=== PATIENT | female | born 1990 | race Caucasian/White ===

== ENCOUNTER → 2017-05-18 09:55 | Outpatient (CLI) | payer BC, SELFPAY | PROVIDERS: PCP Internal Medicine; Visit Provider Internal Medicine | DX: J11.1 Influenza due to unidentified influenza virus with other respiratory manifestations (principal) | CPT/HCPCS: 87275; 87276 ==

== ENCOUNTER → 2017-10-08 11:30 | Outpatient (REF) | payer BC, SELFPAY ==
[2017-10-08 14:03] LABS: Basophils % 0.3 % (0.1-2.0); Eosinophils # 0.4 K/mm3 (0.0-0.4); Eosinophils % 3.3 % (0.1-12.0); Hematocrit 43.4 % (37.0-47.0); Hemoglobin 13.2 g/dL (12.2-16.2); Lymphocytes # 2.2 K/mm3 (0.7-4.5); Lymphocytes % 17.9 K/mm3 (10-50); Mean Corpuscular HGB Conc 30.5 g/dL (31.8-35.4); Mean Corpuscular Hemoglobin 24.2 pg (27.0-31.2); Mean Corpuscular Volume 79.3 fl (81-99); Mean Platelet Volume 7.4 fl (7.4-10.4); Monocytes # 0.5 K/mm3 (0.1-1.0); Neutrophils # 9.2 K/mm3 (1.8-7.8); Neutrophils % 74.4 % (37.0-80.0); Platelet Count 386 K/mm3 (142-424); Red Blood Count 5.47 M/mm3 (4.20-5.40); Red Cell Distribution Width 15.1 % (11.5-17.5); White Blood Count 12.3 K/mm3 (4.8-10.8)
[2017-10-08 14:07] LABS: Alanine Aminotransferase 28 U/L (12-78); Albumin Level 3.9 gm/dL (3.4-5.0); Albumin/Globulin Ratio 1.1 (1.1-1.8); Alkaline Phosphatase 104 U/L (46-116); Aspartate Amino Transferase 17 U/L (15-37); Bilirubin,Total 0.3 mg/dL (0.2-1.0); Blood Urea Nitrogen 11 mg/dL (7-18); Calcium 9.1 mg/dL (8.5-10.1); Carbon Dioxide 25 mmol/L (21.0-32.0); Chloride 104 mmol/L (98-107); Chol/HDL Ratio 5.1 (1-3.5); Cholesterol 175 mg/dL (140-200); Creatinine,Serum 0.61 mg/dL (0.55-1.02); Estimated Glomerular Filt Rate 116 ml/min (>60); GFR (African American) 140 ML/MIN (>60); Globulin 3.7 gm/dl (1.3-3.2); Glucose 94 mg/dL (74-106); HDL Cholesterol 34 mg/dL (29-89); LDL Cholesterol 123 mg/dL (0-130); Sodium 142 mmol/L (136-145); T4 (Thyroxine) 9.4 ug/dl (4.7-13.3); Thyroid Stimulating Hormone 0.86 uIU/ml (0.358-3.740); Total Protein,Serum 7.6 gm/dL (6.4-8.2); Triglycerides 90 mg/dL (30-200); VLDL Cholesterol 18 mg/dL (0-40)
[2017-10-09 15:40] LABS: Vitamin B12 >2000 pg/mL (232-1245); Vitamin D 25 Hydroxy 33.4 ng/mL (30.0-100.0)
== END ==
LOC: LAB 11:30
PROVIDERS: Visit Provider Physician Assistant
DX: R53.83 Other fatigue (principal); R63.5 Abnormal weight gain; Z68.41 Body mass index [BMI] 40.0-44.9, adult
CPT/HCPCS: 80053; 80061; 82607; 82652; 84436; 84443; 85025

== ENCOUNTER 2017-12-17 17:31 | Outpatient (CLI) | payer MEDICAID, SELFPAY ==
[2017-12-17 17:31] VITALS: BP 136/72; PULSE 76; RESP 18; TEMP 36.8; O2SAT 96
[2017-12-17 17:38] VITALS: BMI 32.6
== END 2017-12-17 17:48 | disposition home or self-care (01) ==
LOC: INF 17:33
PROVIDERS: PCP Physician Assistant; Visit Provider Nurse Practitioner
DX: J06.9 Acute upper respiratory infection, unspecified (principal)
CPT/HCPCS: 96372; G0463

== ENCOUNTER → 2018-05-09 10:35 | Outpatient (CLI) | payer MEDICAID, SELFPAY | PROVIDERS: PCP Physician Assistant; Visit Provider Emergency Medicine | DX: J20.9 Acute bronchitis, unspecified (principal) ==

== ENCOUNTER → 2018-08-27 06:40 | Outpatient (CLI) | payer MEDICAID, SELFPAY ==
[2018-08-27 07:01] LABS: Basophils # 0.1 K/mm3 (0-0.2); Basophils % 0.4 % (0.1-2.0); Eosinophils # 0.5 K/mm3 (0.0-0.4); Eosinophils % 3.7 % (0.1-12.0); Hemoglobin 12.3 g/dL (12.2-16.2); Lymphocytes # 2.1 K/mm3 (0.7-4.5); Lymphocytes % 15.9 % (10-50); Mean Corpuscular HGB Conc 32.5 g/dL (31.8-35.4); Mean Corpuscular Hemoglobin 25.1 pg (27.0-31.2); Mean Corpuscular Volume 77.3 fl (81-99); Mean Platelet Volume 6.5 fl (7.4-10.4); Monocytes # 0.5 K/mm3 (0.1-1.0); Monocytes % 3.8 % (1.7-9.3); Neutrophils # 10.2 K/mm3 (1.8-7.8); Neutrophils % 76.2 % (37.0-80.0); Platelet Count 366 K/mm3 (142-424); Red Blood Count 4.92 M/mm3 (4.20-5.40); Red Cell Distribution Width 14.8 % (11.5-17.5); White Blood Count 13.4 K/mm3 (4.8-10.8)
[2018-08-27 07:26] LABS: Blood Urea Nitrogen 13 mg/dL (7-18); Creatinine,Serum 0.77 mg/dL (0.55-1.02); Estimated Glomerular Filt Rate 89 ml/min (>60); Free T4 (Free Thyroxine) 0.96 ng/dl (0.76-1.46); GFR (African American) 107 ML/MIN (>60); Thyroid Stimulating Hormone 1.57 uIU/ml (0.358-3.740)
== END ==
LOC: ER 06:46 → LAB 08-30 08:43
PROVIDERS: Otolaryngology; PCP Physician Assistant; Visit Provider Physician Assistant
DX: R59.9 Enlarged lymph nodes, unspecified (principal)
CPT/HCPCS: 82565; 84439; 84443; 84520; 85025

== ENCOUNTER → 2018-09-16 09:33 | Outpatient (CLI) | payer MEDICAID, SELFPAY ==
--- NOTE | 2018-09-16 09:39 | US_ITS ---
US thyroid HISTORY: Neck swelling and fatigue ITS.REASON: Swollen lymph nodes ORDERING PHYSICIAN: Tato Fitzgerald MD PATIENT AGE: 28 years Comparison: None FINDINGS: Right lobe is 4.1 x 1.1 x 1.6 cm. There is a linear area of increased echogenicity along the posterior aspect of the right lobe which is nonspecific. There is a small 3 mm slightly hypoechoic nodule in the lower pole on the right. The left lobe is 4.2 x 1.2 x 1.3 cm. There is a 12 x 7 mm well-circumscribed slightly hypoechoic nodule in the upper pole on the left. This was has an unremarkable appearance. IMPRESSION: Thyroid gland upper limits of normal with a 12 x 7 mm well-circumscribed nodule in the lower pole on the left which has a low level of suspicion for malignancy.
--- NOTE | 2018-09-16 09:39 | CT_ITS ---
CT soft tissue neck w con CLINICAL INDICATION: ITS.REASON: Swollen lymph nodes ORDERING PHYSICIAN: Tato Fitzgerald MD PATIENT AGE: 28 years COMPARISON: None TECHNIQUE:Axial images obtained following the intravenous administration of 75 mL's of Optiray 350 with sagittal and coronal reformats. All CT scans at the facility use one or more dose reduction, viz: automated exposure control, ma/kV adjustment per patient size (including targeted exams where dose is matched to indication, i.e. head), or iterative reconstruction technique. FINDINGS: There is mild mucosal thickening of the left maxillary sinus. Moderate mucosal thickening involves the ethmoid sinuses. Mild mucosal thickening of the sphenoid sinus. The nasopharynx has an unremarkable appearance as does the supraglottic, glottic, and subglottic region. The epiglottis is unremarkable. There are scattered small lymph nodes in the neck on both sides with no dominant areas of adenopathy. Small hyperdensity nodule is present along the anterior aspect of both right and left parotid gland at 8 mm and may be due to small lymph nodes. The trachea and esophagus are midline. There is a 13 x 10 mm slightly hypodense nodule involving the mid aspect of the left lobe of the thyroid gland. Lung apices are clear. IMPRESSION: 1. Mild paranasal sinus disease. 2. 13 x 8 mm left thyroid nodule. 3. Otherwise essentially negative CT neck
== END ==
PROVIDERS: PCP Physician Assistant; Visit Provider Otolaryngology
DX: R59.9 Enlarged lymph nodes, unspecified (principal)
CPT/HCPCS: 70491; 76536; Q9967

== ENCOUNTER → 2018-12-24 13:47 | Outpatient (CLI) | payer MEDICAID, SELFPAY ==
--- NOTE | 2018-12-24 13:49 | US_ITS ---
PROCEDURE: US THYROID CLINICAL INDICATION: goiter Follow-up thyroid nodules COMPARISON: THY US thyroid from 09/16/2018 FINDINGS: The right lobe is 4.2 x 1.2 x 1.4 cm. There is a 2 mm hypoechoic nodule in the lower pole stable. In the posterior aspect of the right lobe there is questionable nodule. This however has the same echogenicity as the remaining thyroid gland and probably just part of the thyroid gland as opposed to a nodule The left lobe is 4.5 x 1 x 1.5 cm. There is a 1.2 x 1 cm isoechoic nodule in the upper pole unchanged. IMPRESSION: Enlarged thyroid gland. No change in the 1.2 cm nodule on the left and no change in the appearance of the right lobe. Dictated by: Darwin Parra MD 12/24/2018 15:57 Electronically signed by Darwin Parra MD in [place] 12/24/2018 15:57
== END ==
PROVIDERS: PCP Physician Assistant; Visit Provider Otolaryngology
DX: E04.9 Nontoxic goiter, unspecified (principal)
CPT/HCPCS: 76536

== ENCOUNTER → 2019-02-26 08:04 | Outpatient (CLI) | payer OTHER, SELFPAY ==
[2019-02-26 10:57] VITALS: BMI 37.2
== END ==
LOC: ER 08:06 → INF 02-28 09:23
PROVIDERS: PCP Emergency Medicine; Visit Provider Emergency Medicine
DX: M54.5 Low back pain (principal)
CPT/HCPCS: 96372

== ENCOUNTER 2019-06-25 20:32 | Outpatient (CLI) | payer OTHER, SELFPAY ==
[2019-06-25 20:35] VITALS: BMI 40.3
== END 2019-06-25 20:38 | disposition home or self-care (01) ==
LOC: UTC.OUT 20:33
PROVIDERS: PCP Physician Assistant; Visit Provider Nurse Practitioner Family
DX: G43.909 Migraine, unspecified, not intractable, without status migrainosus (principal)
CPT/HCPCS: 96372

== ENCOUNTER → 2019-07-01 15:11 | Outpatient (CLI) | payer OTHER, SELFPAY ==
--- NOTE | 2019-07-01 15:11 | US_ITS ---
PROCEDURE: US THYROID CLINICAL INDICATION: Thyroid nodule COMPARISON: NECKW CT soft tissue neck w con from 09/16/2018 US THYROID from 12/24/2018 FINDINGS: Right lobe: 4.2 x 1 x 1.8 cm. 3 mm hypoechoic nodule lower pole on the right not significantly changed. There is once again noted a an area of questionable decreased echogenicity along the posterior aspect of the right lobe of the thyroid gland and may only represent an area segmentation. This is not significantly changed. Left lobe: 4.2 x 0.9 x 1.6 cm. Hypoechoic well-circumscribed 1.3 x 0.7 cm nodules present in the upper pole unchanged . Isthmus: Unremarkable T rads calculator Additional findings: IMPRESSION: Stable nodule on the left 1.3 x 0.7 cm. Yearly follow-up suggested Dictated by: Darwin Parra MD 07/01/2019 16:43 Electronically signed by Darwin Parra MD in [place] 07/01/2019 16:43
== END ==
PROVIDERS: PCP Physician Assistant; Visit Provider Otolaryngology
DX: E04.1 Nontoxic single thyroid nodule (principal)
CPT/HCPCS: 76536

== ENCOUNTER → 2019-11-30 15:22 | Outpatient (CLI) | payer OTHER, SELFPAY ==
[2019-11-30 15:50] LABS: Basophils % 0.3 % (0.1-2.0); Eosinophils # 0.5 K/mm3 (0.0-0.4); Eosinophils % 3.8 % (0.1-12.0); Hematocrit 36.1 % (37.0-47.0); Hemoglobin 11.8 g/dL (12.2-16.2); Lymphocytes # 2.6 K/mm3 (0.7-4.5); Lymphocytes % 17.9 % (10-50); Mean Corpuscular HGB Conc 32.8 g/dL (31.8-35.4); Mean Corpuscular Hemoglobin 25.2 pg (27.0-31.2); Mean Corpuscular Volume 76.9 fl (81-99); Mean Platelet Volume 7.5 fl (7.4-10.4); Monocytes # 0.4 K/mm3 (0.1-1.0); Monocytes % 2.7 % (1.7-9.3); Neutrophils # 10.7 K/mm3 (1.8-7.8); Neutrophils % 75.3 % (37.0-80.0); Platelet Count 358 K/mm3 (142-424); Red Blood Count 4.69 M/mm3 (4.20-5.40); Red Cell Distribution Width 15.2 % (11.5-17.5); White Blood Count 14.2 K/mm3 (4.8-10.8)
[2019-11-30 15:52] LABS: Chloride 105 mmol/L (98-107); Potassium 3.8 mmoL/L (3.5-5.1); Sodium 139 mmol/L (136-145)
[2019-11-30 15:55] LABS: Alanine Aminotransferase 19 U/L (12-78); Albumin Level 3.8 g/dl (3.5-5.0); Albumin/Globulin Ratio 1.4 (1.1-1.8); Alkaline Phosphatase 95 U/L (38-126); Anion Gap 14.8 mEq/L (5-15); Aspartate Amino Transferase 28 U/L (14-36); Bilirubin,Total 0.5 mg/dl (0.2-1.3); Blood Urea Nitrogen 10 mg/dl (7-17); Carbon Dioxide 23 mmol/L (22.0-30.0); Cholesterol 164 mg/dl (140-200); Estimated Glomerular Filt Rate 84 ml/min (>60); GFR (African American) 101 ML/MIN (>60); Globulin 2.8 g/dL (1.3-3.2); Total Protein,Serum 6.6 g/dl (6.3-8.2); Triglycerides 111 mg/dl (30-150); VLDL Cholesterol 22 mg/dL (0-40)
[2019-11-30 15:56] LABS: Calcium 9.7 mg/dl (8.4-10.2); Chol/HDL Ratio 4.8 (1-3.5); Glucose 157 mg/dl (74-100); HDL Cholesterol 34 mg/dl (40-60)
[2019-11-30 16:07] LABS: Direct LDL Cholesterol 112.74 mg/dL (100-129)
[2019-11-30 16:10] LABS: 25-OH Vitamin D, Total 59.9 ng/mL (30-100)
[2019-11-30 16:13] LABS: T4 (Thyroxine) 10.9 ug/dl (5.53-11.0)
[2019-11-30 16:27] LABS: Thyroid Stimulating Hormone 2.03 uIU/mL (0.465-4.68)
== END ==
PROVIDERS: Visit Provider Physician Assistant
DX: R53.83 Other fatigue (principal)
CPT/HCPCS: 80053; 80061; 82306; 84436; 84443; 85025

== ENCOUNTER → 2020-01-20 01:21 | Outpatient (CLI) | payer OTHER, SELFPAY | PROVIDERS: PCP Physician Assistant; Visit Provider Emergency Medicine | DX: Z03.818 Encounter for observation for suspected exposure to other biological agents ruled out (principal) | CPT/HCPCS: U0003 ==

== ENCOUNTER → 2020-01-20 11:24 | Outpatient (CLI) | payer OTHER, SELFPAY ==
[2020-01-20 12:01] VITALS: BMI 34.9
== END ==
LOC: LAB 11:25 → UTC.OUT 11:28
PROVIDERS: PCP Physician Assistant; Visit Provider Nurse Practitioner Family
DX: J06.9 Acute upper respiratory infection, unspecified (principal)

== ENCOUNTER → 2020-07-28 20:29 | Outpatient (CLI) | payer OTHER, SELFPAY ==
[2020-07-28 20:33] VITALS: BMI 37.1
== END ==
PROVIDERS: PCP Physician Assistant; Visit Provider Nurse Practitioner Family
DX: J30.9 Allergic rhinitis, unspecified (principal)

== ENCOUNTER → 2020-09-10 21:15 | Outpatient (CLI) | payer OTHER, SELFPAY ==
[2020-09-10 21:34] VITALS: BMI 36.3
[2020-09-10 21:38] VITALS: BP 130/70; PULSE 78; RESP 16; O2SAT 98
== END ==
PROVIDERS: PCP Emergency Medicine; Visit Provider Emergency Medicine
DX: J06.9 Acute upper respiratory infection, unspecified (principal)
CPT/HCPCS: 96372

== ENCOUNTER 2021-04-01 19:55 | Emergency (ER) | payer OTHER, SELFPAY ==
[2021-04-01 19:56] VITALS: BP 126/71; PULSE 71; RESP 18; O2SAT 98; BMI 42.1
[2021-04-01 20:30] LABS: Basophils % 0.1 % (0.1-2.0); Eosinophils # 0.4 K/mm3 (0.0-0.4); Eosinophils % 2.2 % (0.1-12.0); Hematocrit 40.9 % (37.0-47.0); Hemoglobin 13.4 g/dL (12.2-16.2); Lymphocytes # 1.1 K/mm3 (0.7-4.5); Lymphocytes % 6.7 % (10-50); Mean Corpuscular HGB Conc 32.6 g/dL (31.8-35.4); Mean Corpuscular Hemoglobin 25.1 pg (27.0-31.2); Mean Platelet Volume 6.7 fl (7.4-10.4); Monocytes # 0.6 K/mm3 (0.1-1.0); Monocytes % 3.5 % (1.7-9.3); Neutrophils # 14.1 K/mm3 (1.8-7.8); Neutrophils % 87.6 % (37.0-80.0); Platelet Count 353 K/mm3 (142-424); Red Blood Count 5.32 M/mm3 (4.20-5.40); Red Cell Distribution Width 14.9 % (11.5-17.5); White Blood Count 16.1 K/mm3 (4.8-10.8)
[2021-04-01 20:33] LABS: MANUAL DIFFERENTIAL MANUAL DIFFERENTIAL (MANUAL DIFF)
[2021-04-01 20:34] VITALS: BP 125/65; PULSE 100; O2SAT 98
[2021-04-01 20:37] LABS: Adenovirus F 40/41, stool Not Detected (NotDetected); Astrovirus Not Detected (NotDetected); Campylobacter Not Detected (NotDetected); Clostridium Difficile A/B, PCR Not Detected (NotDetected); Cryptosporidium Not Detected (NotDetected); Cyclospora Cayetanesis Not Detected (NotDetected); Entamoeba histolytica Not Detected (NotDetected); Enteroaggregative E coli Not Detected (NotDetected); Enteropathogenic E coli Not Detected (NotDetected); Enterotoxigenic E coli Not Detected (NotDetected); Giardia lamblia Not Detected (NotDetected); Plesimonas Shigalloides, PCR Not Detected (NotDetected); Rotavirus A Not Detected (NotDetected); Salmonella, PCR Not Detected (NotDetected); Sapovirus Not Detected (NotDetected); Shiga-like toxin E coli Not Detected (NotDetected); Shigella Enterovasive E coli Not Detected (NotDetected); Vibrio Cholerae Not Detected (NotDetected); Vibrio, PCR Not Detected (NotDetected); Yersinia Entercolitica, PCR Not Detected (NotDetected)
[2021-04-01 20:38] LABS: Alanine Aminotransferase 27 U/L (12-78); Albumin Level 4.3 g/dl (3.5-5.0); Albumin/Globulin Ratio 1.3 (1.1-1.8); Alkaline Phosphatase 106 U/L (38-126); Anion Gap 13.7 mEq/L (5-15); Aspartate Amino Transferase 28 U/L (14-36); Bilirubin,Total 0.5 mg/dl (0.2-1.3); Blood Urea Nitrogen 10 mg/dl (7-17); Calcium 9.1 mg/dl (8.4-10.2); Carbon Dioxide 22 mmol/L (22.0-30.0); Chloride 103 mmol/L (98-107); Creatinine Clearance Estimated 95 mL/min (50-200); Estimated Glomerular Filt Rate 97 ml/min (>60); GFR (African American) 117 ML/MIN (>60); Globulin 3.3 g/dL (1.3-3.2); Glucose 119 mg/dl (74-100); Potassium 3.7 mmoL/L (3.5-5.1); Sodium 135 mmol/L (136-145); Total Protein,Serum 7.6 g/dl (6.3-8.2)
--- NOTE | 2021-04-01 20:42 | HMH.EDNVD ---
ED Disposition Clinical Impression: Enteritis due to Norovirus Disposition: Home, Self-Care Condition on Discharge: Good Instructions: DI for Nausea -- Adult Additional Instructions: fluids and see pcp for follow up Referrals: Laura Chaidez PA [Primary Care Provider] - - Critical Care Critical Care Time: No Attestation: On 04/01/21, the high probability of a clinically significant, sudden or life threatening deterioration of the following system(s) required my full and direct attention, intervention and personal management. The time I documented below is in addition to time spent performing reported procedures but includes the following listed in this critical care notation. Medical Decision Making - Medical Records Medical records reviewed: Yes: I reviewed the patient's medical records. - Aung Inquiry Pt receiving controlled substance: No Vital Signs: 04/01/21 19:56 04/01/21 20:34 04/01/21 22:04 Pulse Rate 100 H 98 H Pulse Rate [Left Radial] 71 Respiratory Rate 18 Blood Pressure 125/65 101/43 L Blood Pressure [Right Arm] 126/71 Blood Pressure Mean 79 61 Blood Pressure Mean [Right Arm] 89 Blood Pressure Source [Right Arm] Automatic Cuff Blood Pressure Position [Right Arm] Sitting 02 Sat by Pulse Oximetry 98 98 98 - Lab Data Lab results reviewed: Yes: I reviewed the patient's lab results. Lab Results 04/01/21 20:10: WBC 16.1 H, RBC 5.32, Hgb 13.4, Hct 40.9, MCV 77.0 L, MCH 25.1 L, MCHC 32.6, RDW 14.9, Plt Count 353, MPV 6.7 L, Neut % (Auto) 87.6 H, Lymph % (Auto) 6.7 L, [place] % (Auto) 3.5, Eos % (Auto) 2.2, Baso % (Auto) 0.1, Neut # (Auto) 14.1 H, Lymph # (Auto) 1.1, [place] # (Auto) 0.6, Eos # (Auto) 0.4, Baso # (Auto) 0.0, Total Counted 100, Neutrophils % (Manual) 85 H, Lymphocytes % (Manual) 13, Monocytes % (Manual) 1 L, Eosinophils % (Manual) 1, Platelet Estimate Normal, RBC Morphology Normal, ESR 20 04/01/21 20:10: Sodium 135 L, Potassium 3.7, Chloride 103, Carbon Dioxide 22, Anion Gap 13.7, BUN 10, Creatinine 0.70, Estimated Creat Clear 95, Estimated GFR 97, Est GFR ( Amer) 117, Glucose 119 H, Calcium 9.1, Total Bilirubin 0.5, AST 28, ALT 27, Alkaline Phosphatase 106, C-Reactive Protein 39.1 H, Total Protein 7.6, Albumin 4.3, Globulin 3.3 H, Albumin/Globulin Ratio 1.3, Procalcitonin 0.080 04/01/21 20:26: Stl Aeromonas (PCR) Not detected, Stl C. cayetanensis PCR Not detected, Stool Rotavirus (PCR) Not detected, Stl Adenov F 40/41 PCR Not detected, Stool Astrovirus (PCR) Not detected, Stool Campylobacter PCR Not detected, Stl C.difficile Tox PCR Not detected, Stool Cryptosporidium PCR Not detected, Stl E.coli Shiga Tox PCR Not detected, Stool E coli O157 PCR Not detected, Stl Enterotoxigenic E PCR Not detected, Stool EPEC (PCR) Not detected, Stool EAEC (PCR) Not detected, Stl E. histolytica PCR Not detected, Stool Giardia Lamblia PCR Not detected, Stool Salmonella PCR Not detected, Stool Sapovirus (PCR) Not detected, Stl P. shigelloides PCR Not detected, Stl Shigella/EIEC PCR Not detected, St Y.enterocolitica PCR Not detected, Stool Vibrio (PCR) Not detected, Stl Vibrio cholerae PCR Not detected, Stl Norovirus GI/GII PCR Detected A Result diagrams: 04/01/21 20:10 04/01/21 20:10 Orders (Tests/Meds): ED MEDICATIONS Generic Name Dose Route Start Last Admin Trade Name Freq PRN Reason Stop Dose Admin Sodium Chloride 1,000 mls @ 999 mls/hr 04/01/21 20:30 04/01/21 20:21 Sod Chlor 0.9% 1000ml Bag IV 04/01/21 21:30 999 mls/hr .Q1H1M KEEGAN Administration Discontinued Medications Generic Name Dose Route Start Last Admin Trade Name Freq PRN Reason Stop Dose Admin Dicyclomine HCl 20 mg 04/01/21 20:32 04/01/21 20:43 Dicyclomine 10mg Capsule PO 04/01/21 20:33 20 mg ONCE ONE Administration Ketorolac Tromethamine 30 mg 04/01/21 20:20 04/01/21 20:21 Ketorolac 30mg/Ml Vial IV 04/01/21 20:21 30 mg ONCE ONE Administration Morphine Sulfate 4 mg 03/14
[2021-04-01 20:56] LABS: Erythrocyte Sedimentation Rate 20 mm/hr (0-20)
[2021-04-01 20:57] LABS: C-Reactive Protein 39.1 mg/L (0-4)
[2021-04-01 22:04] VITALS: BP 101/43; PULSE 98; O2SAT 98
--- NOTE | 2021-04-01 23:08 | PC.NURSE ---
Pt resting at this time. Medicated per JUN. No new needs.
[2021-04-01 23:10] LABS: Eosinophils % 1 % (0-3); Lymphocytes % 13 % (10-50); Monocytes % 1 % (2-9); Neutrophils % 85 % (42-76); Platelet Estimate Normal; RBC Morphology Normal; Total Cells Counted 100
[2021-04-02 00:05] LABS: Norovirus Detected (NotDetected)
[2021-04-02 00:52] VITALS: BP 101/43; PULSE 83; RESP 20; TEMP 36.7; O2SAT 98
== END 2021-04-02 00:54 | disposition home or self-care (01) ==
PROVIDERS: Emergency Provider Emergency Medicine; PCP Physician Assistant
DX: A08.11 Acute gastroenteropathy due to Norwalk agent (principal); F17.210 Nicotine dependence, cigarettes, uncomplicated; Z88.0 Allergy status to penicillin
CPT/HCPCS: 80053; 84145; 85007; 85025; 85651; 86140; 87506; 99283; J2405

== ENCOUNTER → 2021-06-16 05:45 | Outpatient (CLI) | payer OTHER, SELFPAY ==
[2021-06-16 05:52] VITALS: BMI 36.8
== END ==
PROVIDERS: PCP Physician Assistant; Visit Provider Emergency Medicine
DX: J06.9 Acute upper respiratory infection, unspecified (principal)
CPT/HCPCS: 96365; 96366; 96374; 96375; J0696; J2405

== ENCOUNTER 2021-07-03 03:53 | Emergency (ER) | payer OTHER, SELFPAY ==
[2021-07-03 03:54] VITALS: BP 141/83; PULSE 99; RESP 16; TEMP 36.9; O2SAT 99; BMI 37.5
[2021-07-03 04:37] LABS: Basophils # 0.1 K/mm3 (0-0.2); Basophils % 0.4 % (0.1-2.0); Eosinophils # 0.5 K/mm3 (0.0-0.4); Eosinophils % 3.2 % (0.1-12.0); Hematocrit 38.3 % (37.0-47.0); Hemoglobin 12.4 g/dL (12.2-16.2); Lymphocytes # 3.3 K/mm3 (0.7-4.5); Lymphocytes % 21.5 % (10-50); Mean Corpuscular HGB Conc 32.4 g/dL (31.8-35.4); Mean Corpuscular Hemoglobin 25.8 pg (27.0-31.2); Mean Corpuscular Volume 79.6 fl (81-99); Mean Platelet Volume 7.3 fl (7.4-10.4); Monocytes # 0.6 K/mm3 (0.1-1.0); Monocytes % 3.7 % (1.7-9.3); Neutrophils # 10.7 K/mm3 (1.8-7.8); Neutrophils % 71.1 % (37.0-80.0); Platelet Count 372 K/mm3 (142-424); Red Blood Count 4.81 M/mm3 (4.20-5.40); Red Cell Distribution Width 16.8 % (11.5-17.5); White Blood Count 15.1 K/mm3 (4.8-10.8)
--- NOTE | 2021-07-03 04:37 | HMH.EDGENADL ---
ED Disposition Clinical Impression: Migraine Qualifiers: Migraine type: unspecified Status migrainosus presence: without status migrainosus Intractability: not intractable Qualified Code(s): G43.909 - Migraine, unspecified, not intractable, without status migrainosus Disposition: Home, Self-Care Condition on Discharge: Good Prescriptions: Ondansetron [Zofran 4mg ODT] 4 mg PO TIDP PRN #12 tab PRN Reason: Nausea Transmission Status: Pending to [facility] Referrals: Laura Chaidez PA [Primary Care Provider] - - Critical Care Critical Care Time: No Attestation: On 07/03/21, the high probability of a clinically significant, sudden or life threatening deterioration of the following system(s) required my full and direct attention, intervention and personal management. The time I documented below is in addition to time spent performing reported procedures but includes the following listed in this critical care notation. Medical Decision Making - Medical Records Medical records reviewed: Yes: I reviewed the patient's medical records. - Aung Inquiry Pt receiving controlled substance: No Vital Signs: 07/03/21 03:54 Temperature 98.5 F Temperature Source Oral Pulse Rate [Left] 99 H Respiratory Rate 16 Blood Pressure [Right Arm] 141/83 H Blood Pressure Mean [Right Arm] 102 02 Sat by Pulse Oximetry 99 Oxygen Delivery Method Room Air - Lab Data Lab Results 07/03/21 03:58: Serum HCG, Qual Negative 07/03/21 03:58: WBC 15.1 H, RBC 4.81, Hgb 12.4, Hct 38.3, MCV 79.6 L, MCH 25.8 L, MCHC 32.4, RDW 16.8, Plt Count 372, MPV 7.3 L, Neut % (Auto) 71.1, Lymph % (Auto) 21.5, [place] % (Auto) 3.7, Eos % (Auto) 3.2, Baso % (Auto) 0.4, Neut # (Auto) 10.7 H, Lymph # (Auto) 3.3, [place] # (Auto) 0.6, Eos # (Auto) 0.5 H, Baso # (Auto) 0.1, Total Counted 100, Neutrophils % (Manual) 80 H, Lymphocytes % (Manual) 14, Eosinophils % (Manual) 6 H, Platelet Estimate Normal, Hypochromasia 1+ 07/03/21 03:58: Sodium 140, Potassium 3.5, Chloride 109 H, Carbon Dioxide 23, Anion Gap 11.5, BUN 10, Creatinine 0.60, Estimated Creat Clear 231, Estimated GFR 116, Est GFR ( Amer) 140, Glucose 143 H, Calcium 8.4, Total Bilirubin 0.3, AST 25, ALT 24, Alkaline Phosphatase 102, Total Protein 6.8, Albumin 4.0, Globulin 2.8, Albumin/Globulin Ratio 1.4 Result diagrams: 07/03/21 03:58 07/03/21 03:58 Orders (Tests/Meds): ED MEDICATIONS Generic Name Dose Route Start Last Admin Trade Name Freq PRN Reason Stop Dose Admin Dexamethasone Sodium Phosphate 6 mg 07/03/21 04:30 07/03/21 06:42 Dexamethasone 4mg/Ml 1ml Vial IV 08/02/21 04:29 6 mg DAILY KEEGAN Administration Discontinued Medications Generic Name Dose Route Start Last Admin Trade Name Freq PRN Reason Stop Dose Admin Acetaminophen 1,000 mg 07/03/21 04:15 07/03/21 04:38 Acetaminophen 500mg Tab PO 07/03/21 04:16 1,000 mg ONCE ONE Administration Diphenhydramine HCl 25 mg 07/03/21 04:16 07/03/21 04:38 Diphenhydramine 50mg/Ml Vial IV 07/03/21 04:17 25 mg ONCE ONE Administration Ketorolac Tromethamine 15 mg 07/03/21 04:15 07/03/21 04:36 Ketorolac 30mg/Ml Vial IV 07/03/21 04:16 15 mg ONCE ONE Administration Prochlorperazine Edisylate 10 mg 07/03/21 04:16 07/03/21 04:37 Prochlorperazine 10mg/2ml Vial IV 07/03/21 04:17 10 mg ONCE ONE Administration Promethazine HCl 25 mg 07/03/21 06:36 07/03/21 07:05 Promethazine Hcl 25mg/Ml 1ml Vial IV 07/03/21 06:37 25 mg ONCE ONE Administration Medical Decision Narrative: Patient is 30-year-old female presents the ED today with migraine. Patient is well-appearing no acute distress, appears to be in discomfort from a migraine headache, will treat with migraine cocktail empirically and reassess, 15 mg of IV Toradol, 10 mg of IV Compazine, 6 mg of IV Decadron, 1 L of IV fluids and is also milligrams of oral Tylenol. General Adult HPI - General Chief complaint: Dizziness
[2021-07-03 04:39] LABS: Chloride 109 mmol/L (98-107); Potassium 3.5 mmoL/L (3.5-5.1); Sodium 140 mmol/L (136-145)
[2021-07-03 04:42] LABS: Alanine Aminotransferase 24 U/L (12-78); Albumin/Globulin Ratio 1.4 (1.1-1.8); Alkaline Phosphatase 102 U/L (38-126); Anion Gap 11.5 mEq/L (5-15); Aspartate Amino Transferase 25 U/L (14-36); Bilirubin,Total 0.3 mg/dl (0.2-1.3); Blood Urea Nitrogen 10 mg/dl (7-17); Carbon Dioxide 23 mmol/L (22.0-30.0); Creatinine Clearance Estimated 231 mL/min (50-200); Estimated Glomerular Filt Rate 116 ml/min (>60); GFR (African American) 140 ML/MIN (>60); Globulin 2.8 g/dL (1.3-3.2); Total Protein,Serum 6.8 g/dl (6.3-8.2)
[2021-07-03 04:43] LABS: Calcium 8.4 mg/dl (8.4-10.2); Glucose 143 mg/dl (74-100)
[2021-07-03 04:46] LABS: MANUAL DIFFERENTIAL MANUAL DIFFERENTIAL (MANUAL DIFF)
[2021-07-03 04:49] LABS: HCG Qualitative, Serum Negative (Negative)
[2021-07-03 05:32] LABS: Eosinophils % 6 % (0-3); Hypochromasia 1+; Lymphocytes % 14 % (10-50); Neutrophils % 80 % (42-76); Platelet Estimate Normal; Total Cells Counted 100
[2021-07-03 07:41] VITALS: BP 110/53; PULSE 97; RESP 16; TEMP 37.1; O2SAT 98
== END 2021-07-03 07:46 | disposition home or self-care (01) ==
PROVIDERS: Emergency Provider Student in an Organized Health Care Education/Training Program; PCP Physician Assistant
DX: G43.909 Migraine, unspecified, not intractable, without status migrainosus (principal); F17.210 Nicotine dependence, cigarettes, uncomplicated
CPT/HCPCS: 80053; 84703; 85007; 85025; 96374; 96375; 99284

== ENCOUNTER → 2021-07-18 19:49 | Outpatient (CLI) | payer OTHER, SELFPAY ==
[2021-07-18 20:53] LABS: T4 (Thyroxine) 12.2 ug/dl (5.53-11.0)
[2021-07-18 21:07] LABS: Thyroid Stimulating Hormone 1.57 uIU/mL (0.465-4.68)
[2021-07-18 21:33] LABS: Free T4 (Free Thyroxine) 1.01 ng/dl (0.78-2.19)
== END ==
PROVIDERS: PCP Physician Assistant; Visit Provider Emergency Medicine
DX: R53.83 Other fatigue (principal); L65.9 Nonscarring hair loss, unspecified
CPT/HCPCS: 84436; 84439; 84443

== ENCOUNTER 2021-07-19 05:31 | Emergency (ER) | payer OTHER, SELFPAY ==
[2021-07-19 05:32] VITALS: BP 125/78; PULSE 89; RESP 18; TEMP 36.8; O2SAT 99; BMI 37.5
--- NOTE | 2021-07-19 06:59 | HMH.EDGENADL ---
ED Disposition Clinical Impression: Needlestick injury accident Disposition: Home, Self-Care Condition on Discharge: Good Instructions: DI for Skin Abscess Referrals: Laura Chaidez PA [Primary Care Provider] - - Critical Care Critical Care Time: No Attestation: On 07/19/21, the high probability of a clinically significant, sudden or life threatening deterioration of the following system(s) required my full and direct attention, intervention and personal management. The time I documented below is in addition to time spent performing reported procedures but includes the following listed in this critical care notation. Medical Decision Making - Medical Records Medical records reviewed: Yes: I reviewed the patient's medical records. 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 Injury was washed with water, no, disinfectant. We obtained accidental blood-borne pathogen exposure labs per hospital policy. She will follow-up with [facility] health department for further recommendations pending labs. General Adult HPI - General Chief complaint: Skin/Abscess/Foreign Body Stated complaint: WC 07/19/21 needle stick left index finger Time Seen by Provider: 07/19/21 06:59 Mode of Arrival: Ambulatory Source of Information: Patient Limitations: No Limitations Description of Symptoms (Recalled from ER Triage Doc. by RN): Pt is an employee and had a needlestick with bloodborne pathogen exposure with a pt when attempting to start IV cath. Injury to L index finger. Site under water and washed with soap then disenfectant. 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 She is attending to start IV catheter when patient accidentally jerked when she sustained the needlestick injury. She immediately washed the finger, with her left index finger. It was washed with both water, soap, then disinfectant. We obtained blood-borne pathogen exposure hospital policy labs. No other injuries. - Related Data Home Medications Medication Instructions Recorded Confirmed Cariprazine HCl [Vraylar] 3 mg PO DAILY 07/03/21 07/03/21 Dextroamphetamine/Amphetamine 20 mg PO QAM 07/03/21 07/03/21 [Dextroamp-Amphet ER 20 mg Cap] Medroxyprogesterone Acetate See Rx Instructions .ROUTE .COMPLEX 07/03/21 07/03/21 Venlafaxine HCl [Effexor XR 150mg] 150 mg PO DAILY 07/03/21 07/03/21 Previous Rx's Medication Instructions Recorded Ondansetron [Zofran 4mg ODT] 4 mg PO TIDP PRN #12 tab 07/03/21 Allergies Allergy/AdvReac Type Severity Reaction Status Date / Time amoxicillin [From AUGMENTIN] Allergy Intermediate I-HIVES Verified 05/28/21 16:15 clavulanic acid Allergy Intermediate I-HIVES Verified 05/28/21 16:15 [From AUGMENTIN] penicillin G [PENICILLIN G] Allergy Intermediate I-HIVES Verified 05/28/21 16:15 sumatriptan [From IMITREX] Allergy Unknown Verified 05/28/21 16:15 [facility] History - Hepatitis A Screen Drug use history?: No High risk sexual behaviors?: No History of sexually transmitted infection?: No Currently employed?: No Childcare worker?: No Do you have indoor plumbing?: Yes Do you have electricity?: Yes Attestation statement:: This patient has been screened for Hepatitis A risk factors. I have reviewed the patient's past medical history: Yes Other Medical History: Reports: Other Comment: ADHD Laterality Cases: Bilateral: Tonsillectomy Other Surgeries: Yes: Cholecystectomy, , Other Amputation: No Frac
[2021-07-19 07:24] VITALS: BP 124/70; PULSE 80; RESP 16; TEMP 36.8; O2SAT 98
[2021-07-19 08:23] LABS: Basophils # 0.1 K/mm3 (0-0.2); Basophils % 0.7 % (0.1-2.0); Eosinophils # 0.4 K/mm3 (0.0-0.4); Eosinophils % 2.6 % (0.1-12.0); Hematocrit 37.8 % (37.0-47.0); Hemoglobin 12.6 g/dL (12.2-16.2); Lymphocytes # 2.5 K/mm3 (0.7-4.5); Lymphocytes % 18.2 % (10-50); Mean Corpuscular HGB Conc 33.2 g/dL (31.8-35.4); Mean Corpuscular Hemoglobin 26.1 pg (27.0-31.2); Mean Corpuscular Volume 78.5 fl (81-99); Mean Platelet Volume 7.6 fl (7.4-10.4); Monocytes # 0.6 K/mm3 (0.1-1.0); Neutrophils # 10.4 K/mm3 (1.8-7.8); Neutrophils % 74.6 % (37.0-80.0); Platelet Count 377 K/mm3 (142-424); Red Blood Count 4.82 M/mm3 (4.20-5.40); Red Cell Distribution Width 16.6 % (11.5-17.5); White Blood Count 13.9 K/mm3 (4.8-10.8)
[2021-07-19 08:30] LABS: Activated Partial Thrombo Time 32.4 seconds (22.8-30.6); INR 0.92 (0.9-1.1); Prothrombin Time 10.5 seconds (10.1-12.5)
[2021-07-19 10:15] LABS: Alanine Aminotransferase 24 U/L (12-78); Albumin Level 4.3 g/dl (3.5-5.0); Alkaline Phosphatase 96 U/L (38-126); Aspartate Amino Transferase 22 U/L (14-36); Bilirubin,Direct 0.2 mg/dl (0.0-0.4); Bilirubin,Indirect 0.2 mg/dL (0.0-0.9); Bilirubin,Total 0.4 mg/dl (0.2-1.3); Bilirubin,Unconjugated 0.1 mg/dL (0.0-1.1); Total Protein,Serum 6.7 g/dl (6.3-8.2)
[2021-07-20 07:12] LABS: HIV Screen 4th Generation wRfx Non Reactive (Non Reactive)
[2021-07-20 11:13] LABS: Hep B Surface Ab, Qual Reactive (.); Hepatitis B Surface Antigen Negative (Negative); Hepatitis C Antibody 0.2 s/co ratio (0.0-0.9)
== END 2021-07-19 07:27 | disposition home or self-care (01) ==
PROVIDERS: Emergency Provider Emergency Medicine; PCP Physician Assistant
DX: S61.231A Puncture wound without foreign body of left index finger without damage to nail, initial encounter (principal); W22.8XXA Striking against or struck by other objects, initial encounter; Y92.69 Other specified industrial and construction area as the place of occurrence of the external cause; Y99.0 Civilian activity done for income or pay
CPT/HCPCS: 80076; 85025; 85610; 85730; 86703; 86706; 87340; 87380; 99283; G0432

== ENCOUNTER → 2021-09-30 23:57 | Outpatient (CLI) | payer OTHER, SELFPAY ==
[2021-10-01 00:02] LABS: Influenza A, PCR Not Detected (NotDetected); Influenza B, PCR Not Detected (NotDetected)
[2021-10-01 00:24] LABS: Coronavirus 19, PCR Detected (NotDetected)
== END ==
PROVIDERS: Visit Provider Emergency Medicine
DX: U07.1 COVID-19 (principal); R05.9 Cough, unspecified
CPT/HCPCS: C9803; U0003; U0005

== ENCOUNTER 2021-10-03 16:37 | Emergency (ER) | payer OTHER, SELFPAY ==
[2021-10-03 17:00] VITALS: BP 129/73; PULSE 110; RESP 17; TEMP 36.9; O2SAT 100; BMI 39.1
--- NOTE | 2021-10-03 17:25 | HMH.EDUTC ---
[facility] [place] Disposition Clinical Impression: COVID-19, Viral syndrome Sinusitis Qualifiers: Sinusitis location: unspecified location Chronicity: acute Recurrence: non-recurrent Qualified Code(s): J01.90 - Acute sinusitis, unspecified Disposition: Home, Self-Care Condition on Discharge: Good Instructions: DI for Sinusitis, DI for COVID-19 (Suspected or Confirmed ), Preventing the Spread of Coronavirus Discharge Instructions Additional Instructions: Drink plenty of fluids. Take tylenol or ibuprofen for pain or fever. Take the medications as directed. Follow up with your regular doctor. GO TO THE ER FOR ANY WORSENING SYMPTOMS The cough medication (promethazine dm) will make you drowsy, so don't drive or operate heavy machinery after taking it. Prescriptions: Promethazine/Dextromethorphan [Promethazine-Dm Syrup] 5 ml PO Q6HP PRN #240 ml PRN Reason: Cough Transmission Status: Received by [facility] dexAMETHasone [Decadron] 6 mg PO DAILY 5 Days #5 tab Transmission Status: Received by [facility] Azithromycin [Z-Dennis 250mg Tab*] 250 mg PO UD DOSE PK #6 tab Transmission Status: Received by [facility] Referrals: Laura Chaidez PA [Primary Care Provider] - Time of Disposition: 17:30 Medical Decision Making - Medical Records Medical records reviewed: No: I reviewed the patient's medical records. - Aung Inquiry Pt receiving controlled substance: No Vital Signs: 10/03/21 17:00 10/03/21 17:41 Temperature 98.4 F 98.4 F Temperature Source Oral Pulse Rate 110 H Pulse Rate [Left Radial] 110 H Respiratory Rate 17 17 Blood Pressure 129/73 Blood Pressure [Right Arm] 129/73 Blood Pressure Mean [Right Arm] 91 02 Sat by Pulse Oximetry 100 Orders (Tests/Meds): ED MEDICATIONS Discontinued Medications Generic Name Dose Route Start Last Admin Trade Name Freq PRN Reason Stop Dose Admin Ceftriaxone Sodium 1 gm 10/03/21 17:21 10/03/21 17:36 Ceftriaxone 1gm Vial IM 10/03/21 17:22 1 gm ONCE ONE Administration Lidocaine HCl 0 ml 10/03/21 17:21 10/03/21 17:36 Lidocaine 1% 5ml Pf Vial IM 10/03/21 17:22 2 ml ONCE ONE Administration Methylprednisolone Sodium Succinate 125 mg 10/03/21 17:21 10/03/21 17:37 Methylprednisolone Sod Succ 125mg Vial IM 10/03/21 17:22 125 mg ONCE ONE Administration [facility] [place] HPI - General Stated complaint: Covid + Congestion,Ears Time Seen by Provider: 10/03/21 17:00 Description of Symptoms (Recalled from Triage Doc. by RN): patient comes in for head congstion and bilateral ear pain. patient began having symptoms on thursday. patient tested positive on thursday HEENT Symptoms (Recalled from RN notes): Yes Resp Symptoms (Recalled from RN notes): Yes Skin Symptoms (Recalled from RN notes): No MS Symptoms (Recalled from RN notes): No Functional Status (Recalled from RN notes): wnl - History of Present Illness Provider Complaint: She states that she has tested positive for covid 3 days ago. She denies any shortness or breath or significant chest congestion, but she is having a very sore throat and sinus congestion. - Related Data Home Medications Medication Instructions Recorded Confirmed Medroxyprogesterone Acetate See Rx Instructions .ROUTE .COMPLEX 07/03/21 09/10/21 Previous Rx's Medication Instructions Recorded cariprazine 3 mg capsule 3 mg PO DAILY #90 cap 07/29/21 dextroamphetamine-amphetamine ER 20 mg PO QAM #30 cap 09/10/21 20 mg 24hr capsule,extend release vilazodone 20 mg tablet 20 mg PO DAILY #30 tab 09/14/21 Azithromycin [Z-Dennis 250mg Tab*] 250 mg PO UD DOSE PK #6 tab 10/03/21 Promethazine/Dextromethorphan 5 ml PO Q6HP PRN #240 ml 10/03/21 [Promethazine-Dm Syrup] dexAMETHasone [Decadron] 6 mg PO DAILY 5 Days #5 tab 10/03/21 Allergies Allergy/AdvReac Type Severity Reaction Status Date / Time amoxicillin [From AUGMENTIN] Allergy Intermediate I-HIVES Verified 10/03/21 17:03 ashvin
[2021-10-03 17:41] VITALS: BP 129/73; PULSE 110; RESP 17; TEMP 36.9
== END 2021-10-03 17:41 | disposition home or self-care (01) ==
PROVIDERS: Emergency Provider Nurse Practitioner Family; PCP Physician Assistant
DX: U07.1 COVID-19 (principal); J01.90 Acute sinusitis, unspecified; Z88.0 Allergy status to penicillin; Z88.1 Allergy status to other antibiotic agents; Z88.8 Allergy status to other drugs, medicaments and biological substances
CPT/HCPCS: 96372; 99212; G0463; J0696

== ENCOUNTER → 2022-01-24 00:18 | Outpatient (CLI) | payer OTHER, SELFPAY ==
[2022-01-24 01:40] LABS: Total Iron Binding Capacity 298 ug/dL (265-497)
[2022-01-24 01:48] LABS: Free Thyroxine Index 3.2 ug/dL (5.93-13.13); T4 (Thyroxine) 11.2 ug/dl (5.53-11.0); Triiodothryronine (T3) Uptake 29 % (23.5-40.5)
[2022-01-24 02:02] LABS: Thyroid Stimulating Hormone 1.17 uIU/mL (0.465-4.68)
[2022-01-24 02:22] LABS: Hemoglobin A1C 5.6 % (4.0-6.0); Vitamin B12 656 pg/mL (239-931)
[2022-01-24 02:41] LABS: Iron 25 ug/dL (37-170)
[2022-01-25 14:21] LABS: Thyroid Peroxidase Antibodies 34 IU/mL (0-34)
[2022-01-31 20:18] LABS: 1,25 Dihydroxy Vitamin D 45 pg/mL (.); 1,25-Dihydroxy, Vitamin D-2 <10 pg/mL (.); 1,25-Dihydroxy, Vitamin D-3 44 pg/mL (.)
== END ==
PROVIDERS: PCP Physician Assistant; Visit Provider Nurse Practitioner Psychiatric/Mental Health
DX: R53.83 Other fatigue (principal); E66.9 Obesity, unspecified; Z68.41 Body mass index [BMI] 40.0-44.9, adult; Z79.899 Other long term (current) drug therapy
CPT/HCPCS: 82607; 82652; 83036; 83540; 83550; 84436; 84443; 84479; 86376

== ENCOUNTER → 2022-10-01 13:58 | Outpatient (CLI) | payer OTHER, SELFPAY ==
[2022-10-01 12:54] LABS: Basophils % 0.2 % (0.1-2.0); Eosinophils # 0.6 K/mm3 (0.0-0.4); Eosinophils % 3.5 % (0.1-12.0); Hematocrit 39.9 % (37.0-47.0); Hemoglobin 13.2 g/dL (12.2-16.2); Lymphocytes # 2.8 K/mm3 (0.7-4.5); Lymphocytes % 16.7 % (10-50); Mean Corpuscular Hemoglobin 25.1 pg (27.0-31.2); Mean Corpuscular Volume 76.1 fl (81-99); Monocytes # 0.8 K/mm3 (0.1-1.0); Monocytes % 4.7 % (1.7-9.3); Neutrophils # 12.3 K/mm3 (1.8-7.8); Neutrophils % 74.9 % (37.0-80.0); Platelet Count 434 K/mm3 (142-424); Red Blood Count 5.24 M/mm3 (4.20-5.40); Red Cell Distribution Width 15.9 % (11.5-17.5); White Blood Count 16.5 K/mm3 (4.8-10.8)
[2022-10-01 12:55] LABS: MANUAL DIFFERENTIAL MANUAL DIFFERENTIAL (MANUAL DIFF)
[2022-10-01 13:01] LABS: Alanine Aminotransferase 28 U/L (12-78); Albumin Level 4.4 g/dl (3.5-5.0); Albumin/Globulin Ratio 1.5 (1.1-1.8); Alkaline Phosphatase 126 U/L (38-126); Anion Gap 20.1 mEq/L (5-15); Aspartate Amino Transferase 32 U/L (14-36); Bilirubin,Total 0.3 mg/dl (0.2-1.3); Blood Urea Nitrogen 7 mg/dl (7-17); Calcium 9.3 mg/dl (8.4-10.2); Carbon Dioxide 20 mmol/L (22.0-30.0); Chloride 105 mmol/L (98-107); Chol/HDL Ratio 5.5 (1-3.5); Cholesterol 191 mg/dl (140-200); Estimated Glomerular Filt Rate 141 ml/min (>60); GFR (African American) 171 ML/MIN (>60); Globulin 2.9 g/dL (1.3-3.2); Glucose 86 mg/dl (74-100); HDL Cholesterol 35 mg/dl (40-60); Potassium 4.1 mmoL/L (3.5-5.1); Sodium 141 mmol/L (136-145); Total Protein,Serum 7.3 g/dl (6.3-8.2); Triglycerides 145 mg/dl (30-150); VLDL Cholesterol 29 mg/dL (0-40)
[2022-10-01 13:19] LABS: 25-OH Vitamin D, Total 59.4 ng/mL (30-100)
[2022-10-01 13:32] LABS: Thyroid Stimulating Hormone 1.57 uIU/mL (0.465-4.68)
[2022-10-01 13:51] LABS: Vitamin B12 488 pg/mL (239-931)
[2022-10-01 16:44] LABS: Eosinophils % 7 % (0-3); Lymphocytes % 27 % (10-50); Microcytosis 1+; Monocytes % 2 % (2-9); Neutrophils % 64 % (42-76); Platelet Estimate Normal; Total Cells Counted 100
[2022-10-02 09:29] LABS: Estradiol 42.5 pg/mL (.); FSH 7.1 mIU/mL (.); LH 5.5 mIU/mL (.); Progesterone 0.3 ng/mL (.); Testosterone,Total 20 ng/dL (8-60)
[2022-10-04 10:08] LABS: Peripheral Smear Review Scanned Result
[2022-10-09 01:08] LABS: Estrogen 79 pg/mL (.)
[2022-10-29 23:51] LABS: Anti Mullerian Hormone (AMH) 0.784
== END ==
LOC: LAB.DROPOF 13:58
PROVIDERS: PCP Physician Assistant; Visit Provider Physician Assistant
DX: E66.9 Obesity, unspecified (principal); Z68.41 Body mass index [BMI] 40.0-44.9, adult; E04.1 Nontoxic single thyroid nodule; Z79.899 Other long term (current) drug therapy
CPT/HCPCS: 80053; 80061; 82306; 82397; 82533; 82607; 82670; 82672; 83001; 83002; 84144; 84403; 84443; 85007; 85025

== ENCOUNTER → 2022-10-02 13:42 | Outpatient (CLI) | payer OTHER, SELFPAY | PROVIDERS: PCP Physician Assistant; Visit Provider Physician Assistant | DX: F90.0 Attention-deficit hyperactivity disorder, predominantly inattentive type (principal); E66.9 Obesity, unspecified; Z68.41 Body mass index [BMI] 40.0-44.9, adult | CPT/HCPCS: 82088 ==

== ENCOUNTER 2022-10-13 19:51 | Emergency (ER) | payer OTHER, SELFPAY ==
[2022-10-13] VITALS (7 sets, daily range): BP systolic 100–139; BP diastolic 52–74; PULSE 80–138; RESP 15–17; TEMP 36.8–37.6; O2SAT 97–99; BMI 38.0; BMI 40.7
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
--- NOTE | 2022-10-13 19:58 | ECG_ITS ---
APPROVED REPORT Exam: Resting ECG HR:133 bpm ECG Measurements Heart Rate 133 AXES DC 150 P 68 QRSd 102 QRS 99 QT 315 T 44 QTc 393 Conclusion SINUS TACHYCARDIA BORDERLINE RIGHT AXIS DEVIATION [QRS AXIS > 90] LOW QRS VOLTAGE IN PRECORDIAL LEADS [QRS DEFLECTION < 1.0 mV IN CHEST LEADS] ABNORMAL RHYTHM ECG UNCONFIRMED REPORT Electronically signed by : Regulo Schulz MD 10/14/2022 20:28:31
--- NOTE | 2022-10-13 19:59 | PC.NURSE ---
TRAUMA ALERT CANCELLED.
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
[2022-10-13 20:09] LABS: Basophils % 0.2 % (0.1-2.0); Eosinophils # 0.4 K/mm3 (0.0-0.4); Eosinophils % 2.2 % (0.1-12.0); Hematocrit 41.1 % (37.0-47.0); Hemoglobin 13.1 g/dL (12.2-16.2); Lymphocytes # 2.9 K/mm3 (0.7-4.5); Lymphocytes % 15.6 % (10-50); Mean Corpuscular HGB Conc 31.9 g/dL (31.8-35.4); Mean Corpuscular Hemoglobin 24.2 pg (27.0-31.2); Mean Corpuscular Volume 75.7 fl (81-99); Mean Platelet Volume 7.5 fl (7.4-10.4); Monocytes # 0.7 K/mm3 (0.1-1.0); Monocytes % 3.7 % (1.7-9.3); Neutrophils # 14.6 K/mm3 (1.8-7.8); Neutrophils % 78.2 % (37.0-80.0); Platelet Count 467 K/mm3 (142-424); Red Blood Count 5.43 M/mm3 (4.20-5.40); Red Cell Distribution Width 15.9 % (11.5-17.5); White Blood Count 18.7 K/mm3 (4.8-10.8)
[2022-10-13 20:11] LABS: Chloride 106 mmol/L (98-107)
[2022-10-13 20:12] LABS: MANUAL DIFFERENTIAL MANUAL DIFFERENTIAL (MANUAL DIFF); Potassium 3.7 mmoL/L (3.5-5.1); Sodium 141 mmol/L (136-145)
[2022-10-13 20:14] LABS: Alanine Aminotransferase 29 U/L (12-78); Aspartate Amino Transferase 32 U/L (14-36); Blood Urea Nitrogen 11 mg/dl (7-17); Creatinine Clearance Estimated 203 mL/min (50-200); Estimated Glomerular Filt Rate 96 ml/min (>60); GFR (African American) 116 ML/MIN (>60); Lipase 87 U/L (23-300)
[2022-10-13 20:15] LABS: Albumin Level 4.5 g/dl (3.5-5.0); Albumin/Globulin Ratio 1.3 (1.1-1.8); Alkaline Phosphatase 96 U/L (38-126); Anion Gap 14.7 mEq/L (5-15); Bilirubin,Total 0.2 mg/dl (0.2-1.3); Calcium 9.4 mg/dl (8.4-10.2); Carbon Dioxide 24 mmol/L (22.0-30.0); Globulin 3.6 g/dL (1.3-3.2); Glucose 134 mg/dl (74-100); Total Protein,Serum 8.1 g/dl (6.3-8.2)
[2022-10-13 20:17] LABS: Activated Partial Thrombo Time 28.8 seconds (22.8-30.6); HCG Qualitative, Serum Negative (Negative)
[2022-10-13 20:30] LABS: Eosinophils % 1 % (0-3); Hypochromasia 1+; Lymphocytes % 24 % (10-50); Microcytosis 1+; Monocytes % 4 % (2-9); Neutrophils % 71 % (42-76); Platelet Estimate Slight Increase; Total Cells Counted 100
--- NOTE | 2022-10-13 21:09 | PC.NURSE ---
ROUNDED ON PT NOTHING NEEDED AT THIS TIME, CALL LIGHT AT BS
--- NOTE | 2022-10-13 21:34 | PC.NURSE ---
DR. FUNEZ AT
--- NOTE | 2022-10-13 21:38 | PC.NURSE ---
rounded on pt and MD bedside. pt is still in severe pain with little relief of previous meds. new order obtained for pain.
== END 2022-10-13 22:56 | disposition home or self-care (01) ==
PROVIDERS: Student in an Organized Health Care Education/Training Program; Emergency Provider Emergency Medicine; PCP Physician Assistant
DX: S20.211A Contusion of right front wall of thorax, initial encounter (principal); V86.59XA Driver of other special all-terrain or other off-road motor vehicle injured in nontraffic accident, initial encounter; F41.9 Anxiety disorder, unspecified; F17.210 Nicotine dependence, cigarettes, uncomplicated; F90.9 Attention-deficit hyperactivity disorder, unspecified type; F32.9 Major depressive disorder, single episode, unspecified; R10.9 Unspecified abdominal pain; R00.0 Tachycardia, unspecified
CPT/HCPCS: 71045; 71275; 72170; 73590; 74174; 80053; 83690; 84703; 85007; 85025; 85730; 93005; 96361; 96374; 96375; 96376; 99285; J2405; Q9967

== ENCOUNTER → 2022-10-18 00:18 | Outpatient (CLI) | payer OTHER, SELFPAY ==
[2022-10-18 01:14] VITALS: BMI 39.5
== END ==
PROVIDERS: PCP Physician Assistant; Visit Provider Emergency Medicine
DX: J06.9 Acute upper respiratory infection, unspecified (principal)
CPT/HCPCS: J0696

== ENCOUNTER → 2022-11-14 04:37 | Outpatient (CLI) | payer OTHER, SELFPAY ==
[2022-11-14 04:40] VITALS: BMI 33.3
== END ==
PROVIDERS: PCP Physician Assistant; Visit Provider Emergency Medicine
DX: Z23 Encounter for immunization (principal); W54.0XXA Bitten by dog, initial encounter
CPT/HCPCS: 90715

== ENCOUNTER → 2023-01-27 20:41 | Outpatient (CLI) | payer OTHER, SELFPAY ==
--- NOTE | 2023-01-27 20:44 | XR_ITS ---
PROCEDURE INFORMATION: Exam: XR Left Knee Exam date and time: 01/27/2023 9:02 PM Age: 32 years old Clinical indication: Pain; Knee; Left; Additional info: Left knee injury TECHNIQUE: Imaging protocol: Radiologic exam of the left knee. Views: 3 views. COMPARISON: No relevant prior studies available. FINDINGS: Bones/joints: Normal. Soft tissues: Normal. IMPRESSION: No acute findings.
== END ==
PROVIDERS: PCP Physician Assistant; Visit Provider Orthopaedic Surgery
DX: S89.92XA Unspecified injury of left lower leg, initial encounter (principal); Y99.9 Unspecified external cause status
CPT/HCPCS: 73562

== ENCOUNTER → 2023-02-11 09:16 | Outpatient (CLI) | payer OTHER, SELFPAY ==
--- NOTE | 2023-02-11 09:19 | MR_ITS ---
FINAL REPORT CLINICAL HISTORY: Lt knee pain. MEDIAL SIDED KNEE PAIN. TWISTED KNEE AND HEARD A POP. UNABLE TO FULLY EXTEND/BEND KNEE FINDINGS: Multiplanar MR imaging of the right knee was performed without contrast. The medial and lateral menisci are intact without evidence of meniscal tear. The anterior and posterior cruciate ligaments are intact. There is a partial tear of the proximal medial collateral ligament with adjacent edema. The lateral collateral ligamentous complex is intact. The patellar and quadriceps tendons are intact. There is a small nondisplaced fracture of the lateral tibial plateau with adjacent bone marrow edema. There is moderate patellar chondromalacia. Small joint effusion is seen. The musculature is intact. No soft tissue mass or cyst is identified. IMPRESSION: Partial tear of the medial collateral ligament. Nondisplaced fracture of the lateral tibial plateau. Moderate chondromalacia patella. Reviewed, Interpreted and Dictated by Dayron Carter III, MD Transcribed by Rosenda Yadav Authenticated and [facility]
== END ==
PROVIDERS: PCP Physician Assistant; Visit Provider Orthopaedic Surgery
DX: M25.562 Pain in left knee (principal)
CPT/HCPCS: 73721

== ENCOUNTER 2023-02-27 12:05 | Emergency (ER) | payer OTHER, SELFPAY ==
[2023-02-27 12:15] VITALS: BP 148/84; PULSE 85; RESP 20; TEMP 36.8; O2SAT 98; BMI 40.3
--- NOTE | 2023-02-27 12:30 | EXP.UTC ---
Discharge Plan Disposition Patient Disposition: Home, Self-Care Condition: Good Prescriptions Prescriptions: New methylprednisolone [Medrol (Dennis)] 4 mg tablets,dose pack See Rx Instructions .Route .COMPLEX 6 Days Qty: 21 0RF Rx Instructions: taper pack; cefdinir 300 mg capsule 300 mg PO BID Qty: 20 0RF ciprofloxacin-dexamethasone 0.3-0.1 % drops,suspension 4 drp otic (ear) Q12H 7 Days Qty: 7.5 0RF Rx Instructions: in right ear as directed No Action medroxyprogesterone 150 mg/mL suspension 150 mg IM [id number] Qty: 1 5RF dextroamphetamine-amphetamine 20 mg capsule,extended release 24hr 20 mg PO QAM Referrals Follow up/Referrals: Laura Chaidez PA [Primary Care Provider] - See instructions Activity Restrictions/Add. Instructions Additional Instructions/Restrictions: Take medication as prescribed Use ear drops as prescribed FOllow up with your Family Doctor or ENT if no improvement or any worsening of symptoms Return if needed Clinical Impressions Clinical Impression: Otitis media Qualifiers: Otitis media type: unspecified Laterality: right Qualified Code(s): H66.91 - Otitis media, unspecified, right ear Instructions Patient Instructions: Middle Ear Infection, How to Instill Ear Drops Discharge ED Provider: Karol Mayers [facility] General Stated complaint: ear pain Mode of Arrival: Ambulatory Source of Information: Patient Limitations: No Limitations Time Seen by Provider: 02/27/23 12:30 Description of Symptoms (Recalled from Triage Doc. by RN): PATIENT C/O RIGHT EAR PAIN THAT STARTED LAST NIGHT HEENT Symptoms (Recalled from RN notes): Yes Resp Symptoms (Recalled from RN notes): No Skin Symptoms (Recalled from RN notes): No MS Symptoms (Recalled from RN notes): No Functional Status (Recalled from RN notes): WNL History of Present Illness Provider Complaint: Patient states that she has been having sinus pain and pressure for several days but last night her right ear started killing her States that she wasnt able to sleep well due to the pain and throbbing sensation in her ear and this morning she came in to get it checked Related Data Home Medications Medication Instructions Recorded Confirmed dextroamphetamine-amphetamine ER 20 mg PO QAM ADHD 02/27/23 02/27/23 20 mg 24hr capsule,extend release Previous Rx's Medication Instructions Recorded medroxyprogesterone 150 mg/mL 150 mg IM [id number] #1 mL 06/10/22 intramuscular suspension cefdinir 300 mg capsule 300 mg PO BID #20 caps 02/27/23 ciprofloxacin 0.3 %-dexamethasone 4 drp otic (ear) Q12H 7 days #7.5 02/27/23 0.1 % ear drops,suspension mL methylprednisolone 4 mg tablets in See Rx Instructions .Route 02/27/23 a dose pack (Medrol (Dennis)) .COMPLEX 6 days #21 tabs Allergies Allergy/AdvReac Type Severity Reaction Status Date / Time amoxicillin [From AUGMENTIN] Allergy Intermediate I-HIVES Verified 02/19/23 08:53 clavulanic acid Allergy Intermediate I-HIVES Verified 02/19/23 08:53 [From AUGMENTIN] penicillin G [PENICILLIN G] Allergy Intermediate I-HIVES Verified 02/19/23 08:53 sumatriptan [From IMITREX] Allergy Unknown Verified 02/19/23 08:53 vortioxetine AdvReac Intermediate nausea Verified 02/19/23 08:53 [From Trintellix] Worker's Comp Is this a Worker's Comp case?: No [facility] Disclaimer: The information contained in this section may have been updated after the patient was seen, as this information can be updated by other users. Medical History Anxiety and depression Attention Deficit Hyperactivity Disorder (ADHD) Body mass index (BMI) of 40.1 to 44.9 in adult Depression Initiation of Depo Provera Major depressive disorder Tobacco dependence Surgical History History of delivery History of cholecystectomy History of ERCP Family History (Reviewed
[2023-02-27 12:41] VITALS: BP 148/84; PULSE 85; RESP 20; TEMP 36.8; O2SAT 98
== END 2023-02-27 12:45 | disposition home or self-care (01) ==
PROVIDERS: Emergency Provider Nurse Practitioner; PCP Physician Assistant
DX: H66.91 Otitis media, unspecified, right ear (principal); F17.210 Nicotine dependence, cigarettes, uncomplicated; F33.9 Major depressive disorder, recurrent, unspecified; F90.9 Attention-deficit hyperactivity disorder, unspecified type; E66.01 Morbid (severe) obesity due to excess calories; Z68.41 Body mass index [BMI] 40.0-44.9, adult
CPT/HCPCS: 99212; 99214; G0463

== ENCOUNTER → 2023-03-27 16:01 | Outpatient (CLI) | payer OTHER, SELFPAY ==
[2023-03-27 17:05] LABS: Barbiturates Screen,Urine Negative ng/ml (<200)
[2023-03-27 17:06] LABS: Amphetamine/Metha Screen,Urine Positive ng/ml (<1000); Benzodiazepines Screen,Urine Negative ng/ml (<200)
[2023-03-27 17:07] LABS: Methadone Screen,Urine Negative ng/ml (<300)
[2023-03-27 17:08] LABS: Cannabinoid Screen,Urine Negative ng/ml (<50); Cocaine Screen,Urine Negative ng/ml (<300)
[2023-03-27 17:10] LABS: Opiate Screen,Urine Negative ng/ml (<300); Phencyclidine Screen,Urine Negative ng/ml (<25)
== END ==
PROVIDERS: PCP Physician Assistant; Visit Provider Physician Assistant
DX: Z79.899 Other long term (current) drug therapy (principal)
CPT/HCPCS: 80305

== ENCOUNTER 2023-07-16 21:33 | Emergency (ER) | payer OTHER, SELFPAY ==
[2023-07-16 21:33] VITALS: BP 125/91; PULSE 114; RESP 18; TEMP 36.6; O2SAT 96; BMI 39.5
--- NOTE | 2023-07-16 21:48 | XR_ITS ---
PROCEDURE INFORMATION: Exam: XR Right Shoulder Exam date and time: 07/16/2023 9:43 PM Age: 32 years old Clinical indication: Pain; Shoulder; Right; Additional info: Acute injury lifting patient TECHNIQUE: Imaging protocol: Radiologic exam of the right shoulder. Views: 2 or more views. COMPARISON: CT ANGIO CHEST 10/13/2022 8:27 PM FINDINGS: Bones/joints: Normal. Soft tissues: Normal. IMPRESSION: No acute findings.
[2023-07-16] MEDS: DEXAMETHASONE 4MG TABLET 10 MG PO (21:57)
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
[2023-07-16 22:57] VITALS: BP 125/91; PULSE 105; RESP 18; TEMP 36.6; O2SAT 97
== END 2023-07-16 22:57 | disposition home or self-care (01) ==
PROVIDERS: Emergency Provider Emergency Medicine; PCP Physician Assistant
DX: S46.001A Unspecified injury of muscle(s) and tendon(s) of the rotator cuff of right shoulder, initial encounter (principal); M25.511 Pain in right shoulder; F17.210 Nicotine dependence, cigarettes, uncomplicated; F32.9 Major depressive disorder, single episode, unspecified; F41.9 Anxiety disorder, unspecified; F90.9 Attention-deficit hyperactivity disorder, unspecified type; Z68.41 Body mass index [BMI] 40.0-44.9, adult; X50.0XXA Overexertion from strenuous movement or load, initial encounter
CPT/HCPCS: 73030; 99283

== ENCOUNTER 2023-07-22 13:41 | Outpatient (CLI) | payer OTHER, SELFPAY ==
--- NOTE | 2023-07-22 13:56 | MR_ITS ---
FINAL REPORT CLINICAL HISTORY: right shoulder pain workers comp FINDINGS: Multiplanar MR imaging of the right shoulder was performed without contrast. The tendons of the rotator cuff are intact without evidence of rotator cuff tear. There are mild degenerative changes of the acromioclavicular joint. No abnormal fluid is seen in the subacromial/subdeltoid bursa. The glenoid labrum is intact. The long head of the biceps tendon is intact. There is no evidence of fracture, bone bruise or marrow edema. A small glenohumeral joint effusion is identified. The musculature is intact. There is no evidence of soft tissue mass. IMPRESSION: No evidence of rotator cuff tear or labral tear. Mild AC joint degenerative change. Small joint effusion. Reviewed, Interpreted and Dictated by Dayron Carter III, MD Transcribed by Shayy Peñaloza Authenticated and [facility]
== END 2023-07-22 23:59 | disposition home or self-care (01) ==
PROVIDERS: PCP Physician Assistant; Visit Provider Physician Assistant
DX: M25.511 Pain in right shoulder (principal)
CPT/HCPCS: 73221

== ENCOUNTER 2023-09-19 03:12 | Emergency (ER) | payer OTHER, SELFPAY ==
[2023-09-19] VITALS (13 sets, daily range): BP systolic 101–185; BP diastolic 50–103; PULSE 73–117; RESP 14–24; TEMP 36.7; O2SAT 91–99; BMI 40.7
--- NOTE | 2023-09-19 03:18 | CT_ITS ---
PROCEDURE INFORMATION: Exam: CT Abdomen And Pelvis With Contrast Exam date and time: 09/19/2023 3:51 AM Age: 33 years old Clinical indication: Abdominal pain; Additional info: Abd pain, HX pancreatitis TECHNIQUE: Imaging protocol: Computed tomography of the abdomen and pelvis with contrast. Radiation optimization: All CT scans at this facility use at least one of these dose optimization techniques: automated exposure control; mA and/or kV adjustment per patient size (includes targeted exams where dose is matched to clinical indication); or iterative reconstruction. Contrast material: ISOVUE; Contrast volume: 75 ml; Contrast route: IV; COMPARISON: CT ANGIO ABDOMEN PELVIS 10/13/2022 8:27 PM FINDINGS: Liver: Normal. No mass. Gallbladder and bile ducts: Cholecystectomy. Pancreas: Normal. No ductal dilation. Spleen: Normal. No splenomegaly. Adrenal glands: Normal. No mass. Kidneys and ureters: Normal. No hydronephrosis. Stomach and bowel: Unremarkable. No obstruction. No mucosal thickening. Appendix: No evidence of appendicitis. Intraperitoneal space: Unremarkable. No free air. No significant fluid collection. Vasculature: Prominent left pelvic veins and left ovarian vein. Lymph nodes: Unremarkable. No enlarged lymph nodes. Urinary bladder: Unremarkable as visualized. Reproductive: Unremarkable as visualized. Bones/joints: Unremarkable. No acute fracture. Soft tissues: Unremarkable. IMPRESSION: 1. No acute process noted. 2. Prominent left pelvic and ovarian vein consistent with pelvic venous congestion syndrome.
--- NOTE | 2023-09-19 03:26 | PC.NURSE ---
Pt. c/o very shap pain to left side of chest that radiates through to the back. c/o SOB ,
[2023-09-19 03:27] LABS: Basophils # 0.1 K/mm3 (0-0.2); Basophils % 0.5 % (0.1-2.0); Eosinophils # 0.5 K/mm3 (0.0-0.4); Hemoglobin 13.1 g/dL (12.2-16.2); Lymphocytes # 3.2 K/mm3 (0.7-4.5); Lymphocytes % 18.9 % (10-50); Mean Corpuscular HGB Conc 31.9 g/dL (31.8-35.4); Mean Corpuscular Hemoglobin 25.4 pg (27.0-31.2); Mean Corpuscular Volume 79.6 fl (81-99); Mean Platelet Volume 7.2 fl (7.4-10.4); Monocytes # 0.8 K/mm3 (0.1-1.0); Monocytes % 4.5 % (1.7-9.3); Neutrophils # 12.5 K/mm3 (1.8-7.8); Neutrophils % 73.1 % (37.0-80.0); Platelet Count 417 K/mm3 (142-424); Red Blood Count 5.15 M/mm3 (4.20-5.40); Red Cell Distribution Width 17.5 % (11.5-17.5); White Blood Count 17.1 K/mm3 (4.8-10.8)
[2023-09-19] MEDS: ACETAMINOPHEN 1,000MG/100ML VIAL 1000 MG IV (03:29)
[2023-09-19] MEDS: ONDANSETRON 4MG/2ML VIAL 4 MG IV (03:29)
[2023-09-19] MEDS: KETOROLAC 30MG/ML VIAL 30 MG IV (03:29)
[2023-09-19 03:30] LABS: MANUAL DIFFERENTIAL MANUAL DIFFERENTIAL (MANUAL DIFF)
[2023-09-19] MEDS: LACTATED RINGERS 1000ML 1,000 ML 999 ML IV (03:30)
[2023-09-19] MEDS: MORPHINE 4MG/ML SYRINGE 6 MG IV (03:30)
[2023-09-19 03:31] LABS: Chloride 106 mmol/L (98-107); Sodium 139 mmol/L (136-145)
[2023-09-19 03:32] LABS: Potassium 3.9 mmoL/L (3.5-5.1)
[2023-09-19 03:34] LABS: Alanine Aminotransferase 30 U/L (12-78); Albumin Level 4.2 g/dl (3.5-5.0); Albumin/Globulin Ratio 1.2 (1.1-1.8); Alkaline Phosphatase 99 U/L (38-126); Anion Gap 12.9 mEq/L (5-15); Aspartate Amino Transferase 30 U/L (14-36); Bilirubin,Total 0.3 mg/dl (0.2-1.3); Blood Urea Nitrogen 12 mg/dl (7-17); Calcium 9.4 mg/dl (8.4-10.2); Carbon Dioxide 24 mmol/L (22.0-30.0); Estimated Glomerular Filt Rate 114 ml/min (>60); GFR (African American) 138 ML/MIN (>60); Globulin 3.4 g/dL (1.3-3.2); Glucose 111 mg/dl (74-100); Lipase 109 U/L (23-300); Total Protein,Serum 7.6 g/dl (6.3-8.2)
[2023-09-19 03:35] LABS: Magnesium 1.8 mg/dl (1.6-2.3)
[2023-09-19 03:46] LABS: HCG Qualitative, Serum Negative (Negative)
[2023-09-19] MEDS: IOPAMIDOL-370 (76%);100ML BOTTLE 75 ML IV (03:55)
[2023-09-19] MEDS: SODIUM CHLORIDE 0.9% 10ML SYR (RAD ONLY) 10 ML IV (03:55)
[2023-09-19 03:56] LABS: Eosinophils % 4 % (0-3); Lymphocytes % 11 % (10-50); Microcytosis 1+; Monocytes % 5 % (2-9); Neutrophils % 80 % (42-76); Platelet Estimate Normal; Total Cells Counted 100
--- NOTE | 2023-09-19 03:59 | HMH.EDGENADL ---
Discharge Plan Disposition Patient Disposition: Home, Self-Care Chief Complaint: Abdominal Pain Prescriptions Prescriptions: No Action medroxyprogesterone 150 mg/mL suspension 150 mg IM [id number] Qty: 1 5RF Rexulti 1 mg tablet 0RF Rexulti 1 mg tablet 1 mg PO DAILY Qty: 30 2RF dextroamphetamine-amphetamine 20 mg capsule,extended release 24hr 20 mg PO DAILY 30 Days Qty: 30 0RF escitalopram oxalate [Lexapro] 10 mg tablet 10 mg PO DAILY Qty: 30 2RF Referrals Follow up/Referrals: Provider,Referral, MD [Primary Care Provider] - See instructions Activity Restrictions/Add. Instructions Additional Instructions/Restrictions: Please follow-up with your primary care provider. Consider evaluation with endoscopy for gastric pathology. Consider PPI. Please return to the emergency department if you develop any new or worsening symptoms or become concerned for your health. Clinical Impressions Clinical Impression: Abdominal pain, epigastric Instructions Patient Instructions: DI for Acute Abdominal Pain Discharge ED Provider: Job Carpenter General Adult HPI General Chief complaint: Abdominal Pain Stated complaint: ABDOMINAL PAIN Time Seen by Provider: 09/19/23 03:18 History of Present Illness HPI narrative: 33-year-old female with history of pancreatitis after ERCP and cholecystectomy presents with worsening epigastric pain and nausea. She reports that she has gotten pancreatitis in the past after drinking and she went on a cruise last week. She started having epigastric pain towards the end of the cruise and it has been slowly worsening. She denies any recent fever or illness. Reports that she is on Depo and she does not believe she is . She denies any diarrhea. She reports pain is worse with eating. Related Data Previous Rx's Medication Instructions Recorded medroxyprogesterone 150 mg/mL 150 mg IM [id number] #1 mL 05/25/23 intramuscular suspension brexpiprazole 1 mg tablet (Rexulti) 1 mg PO DAILY #30 tabs 09/17/23 dextroamphetamine-amphetamine ER 20 mg PO DAILY 30 days #30 caps 09/18/23 20 mg 24hr capsule,extend release escitalopram oxalate 10 mg tablet 10 mg PO DAILY #30 tabs 09/18/23 (Lexapro) Allergies Allergy/AdvReac Type Severity Reaction Status Date / Time amoxicillin [From AUGMENTIN] Allergy Intermediate I-HIVES Verified 09/17/23 15:55 clavulanic acid Allergy Intermediate I-HIVES Verified 09/17/23 15:55 [From AUGMENTIN] penicillin G [PENICILLIN G] Allergy Intermediate I-HIVES Verified 09/17/23 15:55 sumatriptan [From IMITREX] Allergy Unknown Verified 09/17/23 15:55 vortioxetine AdvReac Intermediate nausea Verified 09/17/23 15:55 [From Trintellix] [facility] Disclaimer: The information contained in this section may have been updated after the patient was seen, as this information can be updated by other users. Medical History Elevated cortisol level Major depressive disorder [place] injury accident Depression Tobacco dependence Anxiety and depression Attention Deficit Hyperactivity Disorder (ADHD) Initiation of Depo Provera Body mass index (BMI) of 40.1 to 44.9 in adult Surgical History History of delivery History of ERCP History of cholecystectomy Family History Mother FHx: mental illness depression Social History Smoking Status: Current every day smoker tobacco type: cigarettes packs per day: 1 quit status: considering quitting second hand exposure: No alcohol intake: current alcohol intake frequency: a few times a month counseling given: No substance use type: denies use current occupational status: employed Travel in the last 8 weeks: None adopted: No caregiver/support person: No foster care: No household members: family housing: house marital status: other details: she is engaged; will be on January 11 number of children: 1 number of grandchildren: 0 education level: college service: No longterm: No 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; 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 pets and animals: Yes pets and animals: cat(s) and dog(s) Hx Recent Travel: No sexually active: Yes physical activity: none working smoke detector in home: Yes fire extinguisher in home: No carbon monox detector in home: No firearms in home: Yes firearms unloaded and locked: Yes do you feel safe at home: Yes victim of physical abuse: No victim of emotional abuse: No victim of sexual abuse: No would you like helpful sources: No ROS Obtained: Yes All systems reviewed & no additional complaints except as documented Physical Exam General General appearance: alert Comment: Uncomfortable appearing Head Head exam: atraumatic and normocephalic Eye Eye exam: Present normal appearance, PERRL and EOMI ENT ENT exam: Present normal oropharynx and normal external ear exam Neck Neck exam: Present normal inspection and full ROM Chest Chest inspection: Present normal inspection and symmetric chest wall rise; Absent tenderness Respiratory Respiratory exam: Present normal lung sounds bilaterally; Absent respiratory distress Cardiovascular Cardiovascular exam: Present regular rate and normal rhythm Abdominal Exam Abdominal exam: Present soft and tenderness (Epigastric, without peritonitis); Absent distention or guarding Extremities Exam Extremities exam: Present normal inspection; Absent edema or joint swelling Back Exam Back exam: Present normal inspection; Absent tenderness Neurological Exam Neurological exam: Present alert and oriented X3; Absent motor sensory deficit Psychiatric Psychiatric exam: Present normal affect and normal mood Skin Skin exam: Present warm, dry and normal color Lymphatic Lymphatic Findings: no adenopathy Medical Decision Making Medical Records Medical records reviewed: Yes I reviewed the patient's medical records. Aung Inquiry Pt receiving controlled substance: No Aung was queried for this patient: No Vital Signs: 09/19/23 03:14 09/19/23 03:28 09/19/23 03:30 Temperature 98.1 F Temperature Source Oral Pulse Rate 77 105 H Pulse Rate [Left] 105 H Respiratory Rate 24 20 20 Blood Pressure 185/103 H 101/73 L Blood Pressure [Right Arm] 101/73 L Blood Pressure Mean [Right Arm] 82 Blood Pressure Source Blood Pressure Position 02 Sat by Pulse Oximetry 96 99 96 Oxygen Delivery Method Room Air Room Air Room Air 09/19/23 03:33 09/19/23 03:42 09/19/23 04:01 Temperature Temperature Source Pulse Rate 77 117 H 116 H Pulse Rate [Left] Respiratory Rate 20 18 22 Blood Pressure 145/71 H 125/72 150/71 H Blood Pressure [Right Arm] Blood Pressure Mean [Right Arm] Blood Pressure Source Automatic Cuff Blood Pressure Position Supine 02 Sat by Pulse Oximetry 99 96 98 Oxygen Delivery Method Room Air Room Air Room Air 09/19/23 04:30 09/19/23 05:00 09/19/23 05:07 Temperature Temperature Source Pulse Rate 109 H 94 H 107 H Pulse Rate [Left] Respiratory Rate 20 20 Blood Pressure 169/96 H 154/95 H 154/95 H Blood Pressure [Right Arm] Blood Pressure Mean [Right Arm] Blood Pressure Source Automatic Cuff Blood Pressure Position Supine 02 Sat by Pulse Oximetry 98 99 97 Oxygen Delivery Method Room Air Room Air 09/19/23 05:30 Temperature Temperature Source Pulse Rate 91 H Pulse Rate [Left] Respiratory Rate Blood Pressure 111/58 L Blood Pressure [Right Arm] Blood Pressure Mean [Right Arm] Blood Pressure Source Blood Pressure Position 02 Sat by Pulse Oximetry 91 L Oxygen Delivery Method Lab Data Lab results reviewed: Yes I reviewed the patient's lab results. Lab Results 09/19/23 03:20: WBC 17.1 H, RBC 5.15, Hgb 13.1, Hct 41.0, MCV 79.6 L, MCH 25.4 L, MCHC 31.9, RDW 17.5, Plt Count 417, MPV 7.2 L, Neut % (Auto) 73.1, Lymph % (Auto) 18.9, [place] % (Auto) 4.5, Eos % (Auto) 3.0, Baso % (Auto) 0.5, Neut # (Auto) 12.5 H, Lymph # (Auto) 3.2, [place] # (Auto) 0.8, Eos # (Auto) 0.5 H, Baso # (Auto) 0.1, Total Counted 100, Neutrophils % (Manual) 80 H, Lymphocytes % (Manual) 11, Monocytes % (Manual) 5, Eosinophils % (Manual) 4 H, Platelet Estimate Normal, Microcytosis 1+, Sodium 139, Potassium 3.9, Chloride 106, Carbon Dioxide 24, Anion Gap 12.9, BUN 12, Creatinine 0.60, Estimated GFR 114, Est GFR ( Amer) 138, Glucose 111 H, Calcium 9.4, Magnesium 1.8, Total Bilirubin 0.3, AST 30, ALT 30, Alkaline Phosphatase 99, Total Protein 7.6, Albumin 4.2, Globulin 3.4 H, Albumin/Globulin Ratio 1.2, Lipase 109, Serum HCG, Qual Negative 09/19/23 03:20 09/19/23 03:20 Orders (Tests/Meds): ED MEDICATIONS Generic Name Dose Route Start Last Admin Trade Name Freq PRN Reason Stop Dose Admin Sodium Chloride 10 ml 09/19/23 03:54 09/19/23 03:55 Sodium Chloride 0.9% 10ml Syr (Rad Only) IV 10/19/23 03:53 10 ml NEEDED PRN Administration Maintain IV Site Discontinued Medications Generic Name Dose Route Start Last Admin Trade Name Shellie PRN Reason Stop Dose Admin Acetaminophen 1,000 mg 09/19/23 03:18 09/19/23 03:29 Acetaminophen 1,000mg/100ml Vial IV 09/19/23 03:19 1,000 mg ONCE ONE Administration Belladonna Alkaloids 60 ml 09/19/23 03:57 09/19/23 04:01 Belladonna Alkaloids 60 Ml Ml PO 09/19/23 03:58 60 ml ONCE ONE Administration Droperidol 2.5 mg 09/19/23 04:44 09/19/23 04:59 Droperidol 5mg/2ml Vial IV 09/19/23 04:45 2.5 mg ONCE ONE Administration Fentanyl Citrate 50 mcg 09/19/23 04:01 09/19/23 04:09 Fentanyl 100mcg/2ml Vial IV 09/19/23 04:02 50 mcg ONCE ONE Administration Lactated Ringer's 1,000 mls @ 999 mls/hr 09/19/23 03:30 09/19/23 03:30 Lactated Ringer's 1000 Ml Bag IV 09/19/23 04:30 999 mls/hr .Q1H1M KEEGAN Administration Iopamidol 75 ml 09/19/23 03:54 09/19/23 03:55 Iopamidol-370 (76%);100ml Bottle IV 09/19/23 03:55 75 ml ONCE ONE Administration Ketorolac Tromethamine 30 mg 09/19/23 03:18 09/19/23 03:29 Ketorolac 30mg/Ml Vial IV 09/19/23 03:19 30 mg ONCE ONE Administration Morphine Sulfate 6 mg 09/19/23 03:18 09/19/23 03:30 Morphine 4mg/Ml Syringe IV 09/19/23 03:19 6 mg ONCE ONE Administration Ondansetron HCl 4 mg 09/19/23 03:18 09/19/23 03:29 Ondansetron 4mg/2ml Vial IV 09/19/23 03:19 4 mg ONCE ONE Administration Promethazine HCl 25 mg 09/19/23 04:01 09/19/23 04:10 Promethazine Hcl 25mg/Ml 1ml Vial IV 09/19/23 04:02 25 mg ONCE ONE Administration Sodium Chloride 25 ml 09/19/23 04:01 09/19/23 04:10 Sodium Chloride 0.9% 25ml Bag IV 09/19/23 04:02 25 ml ONCE ONE Administration ORDERS Category Date Time Status CT abdomen pelvis w con Stat Cat Scan 09/19/23 03:18 Completed CBC w/Auto Diff [Complete Blood Count Auto Diff] Stat Lab 09/19/23 03:20 Completed CMP [Comprehensive Metabolic Panel] Stat Lab 09/19/23 03:20 Completed HCG Qualitative, Serum Stat Lab 09/19/23 03:20 Completed Lipase Stat Lab 09/19/23 03:20 Completed Magnesium Stat Lab 09/19/23 03:20 Completed ECG Data Tracing #1: I reviewed this ECG and interpreted as documented below: Sinus rhythm, rate of 87, normal intervals without evidence of arrhythmia or ischemic pathology. ECG initial impression date: 09/19/23 ECG initial impression time: 04:44 Medical Decision Narrative: 33-year-old female with history of pancreatitis after cholecystectomy and ERCP presents with approximate 1 week of worsening epigastric pain. History was obtained interactive discussion with patient. On arrival, patient is [afebrile, hemodynamically stable, satting appropriately, alert, oriented x4, GCS 15], moving all extremities spontaneously. Full physical exam performed and significant for mild to moderate abdominal tenderness without peritonitis. Differential includes but is not limited to pancreatitis, gastritis, gastroenteritis, perforated hollow viscus. Patient was given morphine, Zofran, 1 L fluid bolus, Tylenol, GI cocktail for symptomatic management and correction of underlying abnormalities. Workup initiated including CBC CMP lipase mag test CT abdomen pelvis with IV contrast. On re-evaluation, patient continues to have nausea and pain. She was unable to tolerate the GI cocktail. Given fentanyl and Phenergan. Laboratory workup independently interpreted by me and significant for mild leukocytosis, normal lipase, no significant electrolyte derangements. Imaging independently interpreted by me and significant for no apparent findings to explain patient's abdominal pain. Does show some evidence of pelvic congestion, but patient's symptoms are not consistent with this finding.. See radiology read for full review of final results. Patient continues to be symptomatic. She was given 2.5 droperidol after which she finally had symptomatic resolution. She was observed for 2 hours after of droperidol administration without ill effect. The underlying etiology of patient's presentation remains uncertain. Could be related to gastric pathology. Does not appear to be pancreatitis given normal labs and imaging, though she reports her symptoms feel the same as prior episodes. Patient was ultimately discharged in stable condition. Return precautions given. Procedures Risk/Benefits of Procedure(s) Were Explained: Yes Critical Care Critical Care Time Critical Care Time: No
[2023-09-19] MEDS: BELLADONNA ALKALOIDS 60 ML ML PO (04:01)
[2023-09-19] MEDS: FENTANYL 100MCG/2ML VIAL 50 MCG IV (04:09)
[2023-09-19] MEDS: SODIUM CHLORIDE 0.9% 25ML BAG 25 ML IV (04:10)
[2023-09-19] MEDS: PROMETHAZINE HCL 25MG/ML 1ML VIAL 25 MG IV (04:10)
--- NOTE | 2023-09-19 04:43 | ECG_ITS ---
APPROVED REPORT Exam: Resting ECG HR:87 bpm ECG Measurements Heart Rate 87 AXES MS 159 P 28 QRSd 91 QRS 95 QT 351 T 73 QTc 395 Conclusion SINUS RHYTHM WITH SINUS ARRHYTHMIA BORDERLINE RIGHT AXIS DEVIATION [QRS AXIS > 90] LOW QRS VOLTAGE IN PRECORDIAL LEADS [QRS DEFLECTION < 1.0 mV IN CHEST LEADS] Electronically signed by : IVETTE LECHUGA, 09/20/2023 12:26:01
[2023-09-19] MEDS: droPERidol 5MG/2ML VIAL 2.5 MG IV (04:59)
== END 2023-09-19 07:02 | disposition home or self-care (01) ==
PROVIDERS: Emergency Provider Emergency Medicine
DX: R10.13 Epigastric pain (principal); I49.9 Cardiac arrhythmia, unspecified; R11.0 Nausea; F17.210 Nicotine dependence, cigarettes, uncomplicated
CPT/HCPCS: 74177; 80053; 83690; 83735; 84703; 85007; 85025; 93005; 96361; 96374; 96375; 99285; J0131; J1790; J1885; J2270; J2405; J2550; J3010; J7120; Q9967

== ENCOUNTER 2023-09-25 09:00 | Outpatient (RCR) | payer OTHER, SELFPAY ==
--- NOTE | 2023-08-18 10:55 | HMH.OTOPEV ---
OT Inpatient Evaluation Rehab OT Outpatient Eval Start: 08/18/23 10:40 Freq: Status: Active Protocol: Document 08/18/23 10:41 RMARSHALL (Rec: 08/18/23 10:55 [facility] [id number]) E-signed By López Addison, OT Outpatient Therapy Subjective History Subjective History Pt is a 32 year old female who reports to therapy for initial evaluation to right shoulder. Pt initially injured right shoulder on while working. 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 Right after the pop pt had immediate pain. Since the time of injury she reports that now she has a throbbing and aching pain in the front part of the shoulder especially at the biceps area and some pain radiating down the arm also some pain in the back of the shoulder. Pt has had MRI with no significant findings. Luckily, pt is left hand dominant. 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 Pt does demonstrate with decreased AROM and strength at the right shoulder . Pt will continue to be be seen in order to address all deficits. New diagnosis of cancer in past 12 No months? Chief Complaint Pain,Stiff,Weakness Symptom Type Ache,Throb,Sharp,Dull Symptoms Relieved By Rest/Positioning Symptoms Aggravated By Physical Activity,Lifting Prior Functional Limitations None Current Functional Limitations Reaching,Lifting,Housework, Dressing,Driving,Sleeping, Recreation Activity Symptom Description Constant but Variable Level of pain today (0-10) 3 Pain scale - at its best (0-10) 3 Pain scale - at its worst (0-10) 8 Shoulder/Elbow Eval Shoulder Objective Measurements Shoulder ROM Right Shoulder Abduction Active Range of 110 degrees Motion (degrees) Shoulder Flexion Active Range of Motion 115 degrees (degrees) Query Text: Shoulder External Rotation Active Range 35 degrees of Motion (degrees) Shoulder Internal Rotation Active Range 45 degrees of Motion (degrees) pain with active ROM shoulder exam right standard pain with passive ROM shoulder exam right standard decreased ROM shoulder exam standard right Shoulder MMT Shoulder Abduction Strength Grade 3+ Fair+ Shoulder Flexion Strength Grade 3+ Fair+ Shoulder External Rotation Strength 3+ Fair+ Grade Shoulder Internal Rotation Strength 3+ Fair+ Grade Shoulder Strength Patient Testing Sitting Position Elbow Objective Measurements QuickDASH Activities Please rate your ability to do the following activities in the last week by selecting the number below the appropriate response. 1. Open a tight or new jar. No difficulty 2. Do heavy mandrel maker (e.g., wash Moderate difficulty montoya, floors). 3. Carry a shopping bag or briefcase. Moderate difficulty 4. Wash your back. Moderate difficulty 5. Use a knife to cut food. No difficulty 6. Recreational activities in which you Moderate difficulty take some force or impact through your arm, shoulder, or hand (e.g., golf, hammering, tennis, etc.). 7. During the past week, to what extent Moderately has your arm, shoulder or hand problem interfered with your normal social activities with family, friends, neighbors or groups? 8. During the past week, were you Moderately limited limited in your work or other regular daily activites as a result of your arm, shoulder or hand problem? 9. Arm, shoulder or hand pain. Moderate 10. Tingling (pins and needles) in your Moderate arm, shoulder or hand. 11. During the past week, how much Moderate difficulty difficulty have you had sleeping because of the pain in your arm, shoulder or hand? Quick DASH 29 OT Outpatient Assessment Impairments Problems/Impairments Palpation Tenderness,Impaired Range of Motion,Impaired Strength,Impaired Endurance, Impaired Lifting,Impaired Dressing,Impaired Shower/ Bathing,Impaired Household Care,Impaired Recreational Activities,Impaired Work Activities,Subjective C/O Pain ,Impaired Self Care/Self Management Prognosis Rehab Potential Good Clinical Impression Consistent with Diagnosis Yes Short Term Goals Number of Weeks 3 Increase Range of Motion Yes: Flex: 130 Abd: 120 ER: 65 IR: 55 Increase Strength Yes: 4-/5 throughout right shoulder Increase Endurance Yes: Pt will tolerate R shoulder exercises for ~20 minutes prior to rest. Decrease Subjective C/O Pain Yes: 5/10 at worst Patient to be Ind w/ HEP Yes: AROM/AAROM exercises; pulleys Improve Quick Dash Score Yes: Activities: 25 or below Tire Cord Weaver Goals Number of Weeks 6 Increase Range of Motion Yes: Flex: 150 Abd: 140 ER: 80 IR: 70 Increase Strength Yes: 4,5/5 throughout right shoulder Increase Endurance Yes: Pt will tolerate R shoulder exercises for ~30 minutes prior to rest. Decrease Subjective C/O Pain Yes: 2/10 at worst Patient to be Ind w/ Advanced HEP Yes: Advanced strengthening exercises Improve Quick Dash Score Yes: Activities: 20 or below Outpatient Therapy Plan of Care Treatment Plan May Include Therapeutic Exercise Including Home Yes Exercise Program Manual Therapy Techniques Yes Neuromuscular Re-education Yes Therapeutic Activities to Return to Yes Previous Functional/Work Level ADL/Self Care Education Yes Thermal Modalities Yes Electrical Stimulation Yes Ultrasound/Phonophoresis Yes Iontophoresis Yes Parrafin Yes Orthotics/Bracing/Splinting Yes Massage Yes Eval/Re-Eval Yes Frequency Times per week 2 Duration Number of Weeks 6 Addendums This patient is a candidate for social No or vocational rehab? Patient/Guardian verbally acknowledges Yes understanding of treatment program and consents to further treatment? Patient/Guardian verbally acknowledges Yes understanding of diagnosis, prognosis and goals for treatment? Eval Complexity OT Charge 57267 - Moderate Complexity PHYSICIAN CERTIFICATION: I certify the specified therapy services for Ari Salazar are required, authorized, and reviewed every 30 days.
--- NOTE | 2023-09-17 08:21 | HMH.RHREAS ---
Rehab Reassessment Rehab OP Re-assessment Start: 08/18/23 10:20 Freq: Status: Active Protocol: Document 09/17/23 08:04 SAUL (Rec: 09/17/23 08:20 [facility] [id number]) E-signed By López Addison OT Rehab Re-assessment Subjective Subjective It may be a litte better. Objective Objective Notes Pt continues to be seen twice a week to address right shoulder deficits. Each session, pt engages in AROM, AAROM, and strengthening exercises. Pt also receives PROM manual stretching in all planes: flexion, abduction, ER , IR. MOdalities are provided in order to decrease pain/ inflammation Assessment Assessment Notes Pt has not been seen for 13 days due to patient being on vacation. Pt reports her pain has improved slightly now reaching a 6/10 at worst. Pt continues to complain of popping in the shoulder with movement. Abduction appears to be her most painful motion. She returns to ortho on September 30 for a follow up AROM R shoulder 09/17/23 Flex: 150 degrees Abd: 120 degrees ER: 75 degrees IR: [address] degrees [address] goals [address], 3 and 5 Goals Not Met see below Revised Goals ST, 4, and 6 LT-6 Plan Plan Continue with OT plan of care at this time Frequency of Therapy 2x's a week Duration of therapy 4 more weeks Time and Billing Re-Eval Time 11 Re-Eval Billing Units 1 PHYSICIAN CERTIFICATION: I certify the specified therapy services for Ari Salazar are required, authorized, and reviewed every 30 days.
== END 2023-09-25 10:00 | disposition home or self-care (01) ==
LOC: OT 09:00
PROVIDERS: Visit Provider Orthopaedic Surgery
DX: M25.511 Pain in right shoulder (principal); S46.001A Unspecified injury of muscle(s) and tendon(s) of the rotator cuff of right shoulder, initial encounter
CPT/HCPCS: 97010; 97014; 97035; 97110; 97140; 97164; 97166; G0283

== ENCOUNTER 2023-12-16 09:39 | Emergency (ER) | payer OTHER, SELFPAY ==
[2023-12-16 09:50] VITALS: BP 127/64; PULSE 102; RESP 20; TEMP 36.8; O2SAT 97; BMI 39.5
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
[2023-12-16 10:31] VITALS: BP 127/64; PULSE 102; RESP 20; TEMP 36.8; O2SAT 97
== END 2023-12-16 10:38 | disposition home or self-care (01) ==
PROVIDERS: Emergency Provider Nurse Practitioner; PCP Physician Assistant
DX: H66.91 Otitis media, unspecified, right ear (principal); R09.81 Nasal congestion; H92.03 Otalgia, bilateral
CPT/HCPCS: 99212; 99214; G0463

== ENCOUNTER 2024-05-27 20:36 | Emergency (ER) | payer BC, SELFPAY ==
[2024-05-27 20:53] VITALS: BP 173/88; PULSE 116; RESP 16; TEMP 36.4; O2SAT 100; BMI 41.9
--- NOTE | 2024-05-27 20:58 | XR_ITS ---
PROCEDURE INFORMATION: Exam: XR Right Ankle Exam date and time: 05/27/2024 9:21 PM Age: 33 years old Clinical indication: Pain; Ankle; Right; Additional info: Fall TECHNIQUE: Imaging protocol: Radiologic exam of the right ankle. Views: 3 or more views. COMPARISON: CR XR ANKLE RT MIN 3V 05/27/2024 9:21 PM FINDINGS: Bones/joints: There is no evidence of acute fracture.There is no evidence of malalignment or dislocation. The avulsion fracture of the fibula is not evident on the ankle series.. Soft tissues: Soft tissue swelling of the ankle IMPRESSION: 1. There is no evidence of acute fracture.There is no evidence of malalignment or dislocation. 2. The avulsion fracture of the fibula is not evident on the ankle series..
--- NOTE | 2024-05-27 20:58 | XR_ITS ---
PROCEDURE INFORMATION: Exam: XR Right Foot Exam date and time: 05/27/2024 9:21 PM Age: 33 years old Clinical indication: Pain; Ankle; Right; Additional info: Fall TECHNIQUE: Imaging protocol: Radiologic exam of the right foot. Views: 3 or more views. COMPARISON: CR XR FOOT RT MIN 3V 05/27/2024 9:21 PM FINDINGS: Bones/joints: There is a lucency in the distal aspect of the fibula that may represent acute or chronic avulsion fracture. No acute fracture of the foot. Soft tissues: Soft tissue swelling over the dorsum of the foot IMPRESSION: 1. There is a lucency in the distal aspect of the fibula that may represent acute or chronic avulsion fracture. 2. No acute fracture of the foot.
[2024-05-27] MEDS: ONDANSETRON 4MG ODT 4 MG SL (21:00)
--- NOTE | 2024-05-27 21:00 | PC.NURSE ---
Attempted to assist patient to treatment room 10 via wheelchair. Patient refused. Ambulated to treatment room.
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
--- NOTE | 2024-05-27 21:08 | XR_ITS ---
PROCEDURE INFORMATION: Exam: XR Right Tibia and Fibula Exam date and time: 05/27/2024 9:21 PM Age: 33 years old Clinical indication: Pain; Ankle; Right; Additional info: Fall TECHNIQUE: Imaging protocol: Radiologic exam of the right tibia and fibula. Views: 2 views. COMPARISON: CR XR TIBIA FIBULA RT 2V 10/13/2022 8:02 PM FINDINGS: Bones/joints: There is no evidence of acute fracture.There is no evidence of malalignment or dislocation. Soft tissues: Normal. IMPRESSION: There is no evidence of acute fracture.There is no evidence of malalignment or dislocation.
[2024-05-27] MEDS: OXYCODONE 5MG IMMEDIATE RELEASE TABLET 10 MG PO (21:09)
[2024-05-27 21:15] VITALS: BP 155/96; PULSE 121; O2SAT 99
[2024-05-27 21:31] VITALS: BP 125/84; PULSE 129; O2SAT 98
[2024-05-27] MEDS: ONDANSETRON 4MG/2ML VIAL 4 MG IM (21:55)
[2024-05-27 22:01] VITALS: BP 129/65; PULSE 98; O2SAT 98
[2024-05-27 22:23] VITALS: BP 115/75; PULSE 84; RESP 16; TEMP 37.2; O2SAT 97
== END 2024-05-27 22:33 | disposition home or self-care (01) ==
PROVIDERS: Emergency Provider Student in an Organized Health Care Education/Training Program; PCP Physician Assistant
DX: S82.891A Other fracture of right lower leg, initial encounter for closed fracture (principal); M25.571 Pain in right ankle and joints of right foot; M79.671 Pain in right foot; W10.9XXA Fall (on) (from) unspecified stairs and steps, initial encounter; Y93.89 Activity, other specified; Y92.89 Other specified places as the place of occurrence of the external cause
CPT/HCPCS: 73590; 73610; 73630; 96372; 99283; J2405; Q0162

== ENCOUNTER 2024-06-14 13:31 | Outpatient (CLI) | payer BC, SELFPAY ==
--- NOTE | 2024-06-14 13:34 | XR_ITS ---
FINAL REPORT CLINICAL HISTORY: RT ankle FX COMPARISON: 05/27/2024 FINDINGS: RIGHT ANKLE Three views were obtained. There is a tiny avulsion fracture of indeterminate age involving the tip of the lateral malleolus which is stable. Finding is best seen on the frontal foot radiographs. The joint spaces appear normal. No soft tissue abnormality is identified. IMPRESSION: No significant change. Reviewed, Interpreted and Dictated by Aleida Scott MD Transcribed by Rosenda Yadav Authenticated and [facility]
--- NOTE | 2024-06-14 13:34 | XR_ITS ---
FINAL REPORT CLINICAL HISTORY: RT ankle FX COMPARISON: 05/27/2024 FINDINGS: Right foot Three views were obtained. There is no fracture or dislocation of the foot. There is an avulsion fracture fragment arising from the distal lateral malleolus which is stable. The joint spaces appear normal. No soft tissue abnormality is identified. IMPRESSION: No acute foot fracture identified although the lateral malleolus avulsion fracture is best seen on foot radiographs. Reviewed, Interpreted and Dictated by Aleida Scott MD Transcribed by Rosenda Yadav Authenticated and [facility]
== END 2024-06-14 23:59 | disposition home or self-care (01) ==
LOC: RAD 13:32
PROVIDERS: PCP Physician Assistant; Visit Provider Orthopaedic Surgery
DX: M25.571 Pain in right ankle and joints of right foot (principal); M79.671 Pain in right foot; S82.891A Other fracture of right lower leg, initial encounter for closed fracture
CPT/HCPCS: 73610; 73630

== ENCOUNTER 2024-07-05 14:14 | Outpatient (CLI) | payer BC, SELFPAY ==
--- NOTE | 2024-07-05 14:16 | XR_ITS ---
FINAL REPORT CLINICAL HISTORY: right foot fx COMPARISON: 06/14/2024 FINDINGS: AP, oblique and lateral views of the right foot were obtained. There is no acute fracture or dislocation. There is a well-corticated calcific density adjacent to the lateral malleolus that is stable when compared to the prior exam. The joint spaces are preserved. There are several small radiopaque densities in the plantar forefoot seen on the lateral view. IMPRESSION: No acute osseous abnormality of the right foot, with a well-corticated calcific density adjacent to the lateral malleolus, stable. Several small radiopaque densities in the plantar forefoot seen on the lateral view. Reviewed, Interpreted and Dictated by Guadalupe Wilkins MD Transcribed by Rosa Varela Authenticated and [facility]
== END 2024-07-05 23:59 | disposition home or self-care (01) ==
LOC: RAD 14:15
PROVIDERS: PCP Physician Assistant; Visit Provider Physician Assistant Surgical
DX: M79.671 Pain in right foot (principal); S82.61XA Displaced fracture of lateral malleolus of right fibula, initial encounter for closed fracture
CPT/HCPCS: 73630

== ENCOUNTER 2024-08-22 10:37 | Emergency (ER) | payer BC, SELFPAY ==
[2024-08-22] VITALS (7 sets, daily range): BP systolic 118–145; BP diastolic 65–79; PULSE 87–104; RESP 14–22; TEMP 36.9; O2SAT 97–99; BMI 41.9
--- NOTE | 2024-08-22 10:32 | ECG_ITS ---
APPROVED REPORT Exam: Resting ECG HR:112 bpm ECG Measurements Heart Rate 112 AXES LA 180 P 65 QRSd 101 QRS 80 QT 330 T 49 QTc 396 Conclusion SINUS TACHYCARDIA LOW QRS VOLTAGE IN PRECORDIAL LEADS [QRS DEFLECTION < 1.0 mV IN CHEST LEADS] ABNORMAL RHYTHM ECG UNCONFIRMED REPORT Electronically signed by : KAYKAY DOVE, 08/23/2024 01:45:34
--- NOTE | 2024-08-22 10:39 | HMH.EDGENADL ---
Discharge Plan Prescriptions Prescriptions: No Action medroxyprogesterone 150 mg/mL suspension 150 mg IM [id number] Qty: 1 5RF dextroamphetamine-amphetamine 20 mg capsule,extended release 24hr 20 mg PO DAILY 30 Days Qty: 30 0RF Rexulti 1 mg tablet 1 mg PO DAILY Qty: 30 2RF escitalopram oxalate [Lexapro] 10 mg tablet 10 mg PO DAILY Qty: 30 2RF cefdinir 300 mg capsule 300 mg PO BID Qty: 20 0RF Print Language Print Language: Cameroonian Discharge ED Provider: Matias Samano Adult HPI General Stated complaint: Chest Pain Related Data Previous Rx's ?Medication ?Instructions ?Recorded medroxyprogesterone 150 mg/mL 150 mg IM [id number] #1 mL 05/25/23 intramuscular suspension cefdinir 300 mg capsule 300 mg PO BID #20 caps 12/16/23 dextroamphetamine-amphetamine ER 20 mg PO DAILY 30 days #30 caps 01/04/24 20 mg 24hr capsule,extend release brexpiprazole 1 mg tablet (Rexulti) 1 mg PO DAILY #30 tabs 01/14/24 escitalopram oxalate 10 mg tablet 10 mg PO DAILY #30 tabs 01/14/24 (Lexapro) Allergies Allergy/AdvReac Type Severity Reaction Status Date / Time amoxicillin (From AUGMENTIN) Allergy Intermediate I-HIVES Verified 07/05/24 14:57 clavulanic acid (From Allergy Intermediate I-HIVES Verified 07/05/24 14:57 AUGMENTIN) penicillin G (PENICILLIN G) Allergy Intermediate I-HIVES Verified 07/05/24 14:57 sumatriptan (From IMITREX) Allergy Unknown Verified 07/05/24 14:57 vortioxetine (From AdvReac Intermediate nausea Verified 07/05/24 14:57 Trintellix) [facility] Disclaimer: The information contained in this section may have been updated after the patient was seen, as this information can be updated by other users. Medical History Elevated cortisol level Major depressive disorder [place] injury accident Depression Tobacco dependence Anxiety and depression Attention Deficit Hyperactivity Disorder (ADHD) Initiation of Depo Provera Body mass index (BMI) of 40.1 to 44.9 in adult Surgical History History of delivery History of ERCP History of cholecystectomy Family History Mother FHx: mental illness depression Social History Smoking Status: Never smoker quit status: considering quitting second hand exposure: No alcohol intake: current alcohol intake frequency: a few times a month counseling given: No substance use type: denies use current occupational status: employed Travel in the last 8 weeks?: None adopted: No caregiver/support person: No foster care: No household members: family housing: house marital status: other details: she is engaged; will be on January 11 number of children: 1 number of grandchildren: 0 education level: college service: No correction: No 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; 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 pets and animals: Yes pets and animals: cat(s) and dog(s) Hx Recent Travel: No sexually active: Yes physical activity: none working smoke detector in home: Yes fire extinguisher in home: No carbon monox detector in home: No firearms in home: Yes firearms unloaded and locked: Yes do you feel safe at home: Yes victim of physical abuse: No victim of emotional abuse: No victim of sexual abuse: No would you like helpful sources: No Other Medical History Have you received the Flu Vaccine for this season: Yes Have you received the Pneumonia Vaccine: Yes Medical Decision Making Medical Records Screening: Per USPSTF and CDC recommendations, given the prevalence of disease in our region, it is our hospital?s policy to screen for HIV and viral Hepatitis for all patients aged 18 and over and those with ongoing risk factors. ECG Data Tracing #1: I reviewed this ECG and interpreted as documented below: EKG interpreted by me personally. Sinus tachycardia with a ventricular rate of [address] elevation or depression. QTc normal at 396.
--- NOTE | 2024-08-22 10:54 | CT_ITS ---
FINAL REPORT TECHNIQUE: After the administration of intravenous contrast, axial images were obtained through the abdomen and pelvis by computed tomography. The study was performed with techniques to keep radiation dose as low as reasonably achievable, (ALARA). Individual dose reduction techniques using automated exposure control or adjustment of mA and/or kV according to the patient's size were employed. CLINICAL HISTORY: LLQ pain COMPARISON: 09/19/2023 FINDINGS: Abdomen: The lung bases are clear. There is mild fatty infiltration of the liver and the liver measures up to 25 cm consistent with moderate to marked hepatomegaly. The gallbladder is surgically absent. The spleen, pancreas, adrenals and kidneys appear unremarkable. The aorta is normal in caliber. There is no free fluid or adenopathy. There is a soft tissue nodule in the right lower quadrant which appears to reside in retroperitoneal fat measuring 1.5 cm in diameter seen on image 85 of series 3. This appears similar to the previous exam. Pelvis: The appendix is unremarkable. The uterus is anteverted. The urinary bladder is incompletely distended. There is prominence of the pelvic veins consistent with pelvic venous congestion. There is no free fluid or adenopathy. IMPRESSION: Prominent hepatomegaly and fatty liver. Nodule in right lower quadrant which is indeterminate but similar to previous exam. Pelvic venous congestion. Reviewed, Interpreted and Dictated by Bhupendra Carl MD Transcribed by Madhavi Lehman Authenticated and [facility]
--- NOTE | 2024-08-22 10:55 | XR_ITS ---
FINAL REPORT CLINICAL HISTORY: Chest pain COMPARISON: 10/13/2022 FINDINGS: A single view of the chest was obtained. The heart size is normal. The mediastinum is normal. The lungs are underinflated. There is mild atelectasis at the right lung base. There are no pleural effusions. There is no pneumothorax. There is no osseous abnormality. IMPRESSION: Underinflation. Mild atelectasis right lung base. Reviewed, Interpreted and Dictated by Bhupendra Carl MD Transcribed by Madhavi Lehman Authenticated and . [facility]
--- NOTE | 2024-08-22 10:57 | [facility].EDCP ---
Discharge Plan Disposition Patient Disposition: Home, Self-Care Condition: Good Prescriptions Prescriptions: New ondansetron 4 mg tablet,disintegrating 4 mg PO Q6H PRN (Reason: nausea and vomiting) Qty: 14 0RF meclizine 25 mg tablet 25 mg PO DAILY PRN (Reason: motion sickness) Qty: 10 0RF No Action medroxyprogesterone 150 mg/mL suspension 150 mg IM [id number] Qty: 1 5RF dextroamphetamine-amphetamine 20 mg capsule,extended release 24hr 20 mg PO DAILY 30 Days Qty: 30 0RF Rexulti 1 mg tablet 1 mg PO DAILY Qty: 30 2RF escitalopram oxalate [Lexapro] 10 mg tablet 10 mg PO DAILY Qty: 30 2RF cefdinir 300 mg capsule 300 mg PO BID Qty: 20 0RF Referrals Follow up/Referrals: Provider,Referral, MD [Primary Care Provider] - See instructions Activity Restrictions/Add. Instructions Additional Instructions/Restrictions: Please return to the emergency department for any worsening signs or symptoms, any worsening chest pain, any worsening shortness of breath, nausea vomiting or other acute symptomatology. Please follow-up with your family doctor and POST ADOPT[facility] COORDINATOR in the upcoming days/weeks. Please utilize anti-inflammatory medications for pain. Clinical Impressions Clinical Impression: Chest pain, Groin pain Stand Alone Forms Stand Alone Forms: Work/School Release Instructions Patient Instructions: DI for Atypical Chest Pain Print Language Print Language: Slovak Discharge ED Provider: Matias Samano HPI <ROBERTO Mooney - Last Filed: 08/22/24 13:20> General Chief Complaint: Chest Pain Stated Complaint: Chest Pain Time Seen by Provider: 08/22/24 10:44 Mode of Arrival: Ambulatory Source of Information: Patient Description of Symptoms (Recalled from ER Triage Doc. by RN): PT REPORTS CHEST PRESSURE THAT STARTED THURSDAY AT REST WHILE SITTING GETTING READY FOR WORK. PAIN LASTED ABOUT 15 MINUTES. WOKE YESTERDAY AM WITH DIZZINESS, BETTER AT REST. CONTINUES TO HAVE CHEST PRESSURE THAT RADIATES TO LECK AND LEFT ARM. REPORTS NEW SHORTNESS OF BREATH AND LEFT GROIN PAIN. REPORTS NAUSEA History of Present Illness HPI narrative: 33-year-old female presents to the emergency department with chest pain, dizziness, and left groin pain since Thursday, patient states that she had onset of left groin pain and left-sided chest pain nonradiating around 5:30 PM on Thursday, she endorses shortness of breath with this, and nausea, her maximal pain at that time was a 8 out of 10 , she states the pain has somewhat subsided, now currently a 3 out of 10 , describes it as a heaviness and aching, shortness of breath with this, with some radiation up into the neck and down the left arm, nonexertional, not improved with rest, or moving positions, she denies any fever chills cough congestion sore throat, admits to nausea, denies any vomiting constipation diarrhea no urinary type symptomatology, she has intermittent dizziness, that is worse with movement. Other past medical history consistent with anxiety/depression, previous multiple ERCPs, after her cholecystectomy, she developed sphincter of Oddi, she is current everyday smoker, and is on contraceptive/supplemental hormone therapy injection, denies any alcohol or other drug use. Initial triage vitals unremarkable. MD complaint: chest pain Onset (ago): day(s) Duration: intermittent Activity at onset: during rest Pain location: substernal and left chest Severity: mild Severity scale (1-10): 3 Quality: tightness, aching and heaviness Related Data Previous Rx's ?Medication ?Instructions ?Recorded medroxyprogesterone 150 mg/mL 150 mg IM [id number] #1 mL 05/25/23 intramuscular suspension cefdinir 300 mg capsule 300 mg PO BID #20 caps 12/16/23 dextroamphetamine-amphetamine ER 20 mg PO DAILY 30 days #30 caps 01/04/24 20 mg 24hr capsule,extend release brexpiprazole 1 mg tablet (Rexulti) 1 mg PO DAILY #30 tabs 01/14/24 escitalopram oxalate 10 mg tablet 10 mg PO DAILY #30 tabs 01/14/24 (Lexapro) meclizine 25 mg tablet 25 mg PO DAILY PRN motion sickness 08/22/24 #10 tabs ondansetron 4 mg disintegrating 4 mg PO Q6H PRN nausea and 08/22/24 tablet vomiting #14 tabs Allergies Allergy/AdvReac Type Severity Reaction Status Date / Time amoxicillin (From AUGMENTIN) Allergy Intermediate I-HIVES Verified 07/05/24 14:57 clavulanic acid (From Allergy Intermediate I-HIVES Verified 07/05/24 14:57 AUGMENTIN) penicillin G (PENICILLIN G) Allergy Intermediate I-HIVES Verified 07/05/24 14:57 sumatriptan (From IMITREX) Allergy Unknown Verified 07/05/24 14:57 vortioxetine (From AdvReac Intermediate nausea Verified 07/05/24 14:57 Trintellix) [facility] <ROBERTO Mooney - Last Filed: 08/22/24 13:20> [facility] Disclaimer: The information contained in this section may have been updated after the patient was seen, as this information can be updated by other users. Medical History Elevated cortisol level Major depressive disorder [place] injury accident Depression Tobacco dependence Anxiety and depression Attention Deficit Hyperactivity Disorder (ADHD) Initiation of Depo Provera Body mass index (BMI) of 40.1 to 44.9 in adult Surgical History History of delivery History of ERCP History of cholecystectomy Family History Mother FHx: mental illness depression Social History Smoking Status: Current every day smoker tobacco type: cigarettes packs per day: 1 quit status: considering quitting second hand exposure: No alcohol intake: current alcohol intake frequency: a few times a month counseling given: No substance use type: denies use current occupational status: employed Travel in the last 8 weeks?: None adopted: No caregiver/support person: No foster care: No household members: family housing: house marital status: other details: she is engaged; will be on January 11 number of children: 1 number of grandchildren: 0 education level: college service: No longterm: No 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; 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 pets and animals: Yes pets and animals: cat(s) and dog(s) Hx Recent Travel: No sexually active: Yes physical activity: none working smoke detector in home: Yes fire extinguisher in home: No carbon monox detector in home: No firearms in home: Yes firearms unloaded and locked: Yes do you feel safe at home: Yes victim of physical abuse: No victim of emotional abuse: No victim of sexual abuse: No would you like helpful sources: No Have you lived/traveled outside [place] in past 30 days?: No Contact w/someone who lives/traveled outside US past 30 days?: No Exposure to someone with infectious disease in past 14 days?: No Do you have a fever (greater than 100.4 F or 38 C)?: No Have you tested positive for COVID-19?: No Exposed to someone with COVID-19 in past 14 days?: No Do you have a sore throat?: No Do you have a cough?: No Do you have any weakness?: No Do you have any diarrhea?: No Are you experiencing any unusual bleeding?: No Do you have any muscle aches/pain?: No Do you have any abdominal pain?: No Are you experiencing loss of taste or smell?: No Other Medical History Have you received the Flu Vaccine for this season: Yes Have you received the Pneumonia Vaccine: Yes <ROBERTO Mooney - Last Filed: 08/22/24 13:20> ROS Obtained: Yes All systems reviewed & no additional complaints except as documented Physical Exam <ROBERTO Mooney - Last Filed: 08/22/24 13:20> General General appearance: alert and in no apparent distress Head Head exam: atraumatic and normocephalic Eye Eye exam: Present PERRL and EOMI ENT ENT exam: Present mucous membranes moist Neck Neck exam: Present normal inspection Chest Chest inspection: Present normal inspection and symmetric chest wall rise Respiratory Respiratory exam: Present normal lung sounds bilaterally; Absent respiratory distress Cardiovascular Cardiovascular exam: Present regular rate and normal rhythm Abdominal Exam Abdominal exam: Present soft and tenderness; Absent guarding, rebound or rigidity Abdominal tenderness: Present LLQ, diffuse and mild Comment: Left lower quadrant/left-sided groin pain/left-sided pain that is mild Extremities Exam Extremities exam: Present normal inspection Neurological Exam Neurological exam: Present alert and oriented X3 Psychiatric Psychiatric exam: Present normal affect Skin Skin exam: Present warm and dry HEART Score <ROBERTO Mooney - Last Filed: 08/22/24 13:20> HEART Score HEART Score assessment performed?: Yes HEART Score: 1 <Matias Samano MD - Last Filed: 08/22/24 23:16> HEART Score HEART Score: 1 Critical Care <ROBERTO Mooney - Last Filed: 08/22/24 13:20> Critical Care Time Critical Care Time: No Medical Decision Making <ROBERTO Mooney - Last Filed: 08/22/24 13:20> Medical Records Medical records reviewed: Yes I reviewed the patient's medical records. Aung Inquiry Pt receiving controlled substance: Yes Aung was queried for this patient: No Reason not queried -: Emergent pt cond-no time Risks and benefits of using a controlled substance: were discussed with pt by me Vital Signs Vital Signs: 08/22/24 10:44 08/22/24 10:51 08/22/24 11:00 Temperature 98.5 F Temperature Source Oral Pulse Rate 104 H 96 H Pulse Rate [Apical] 104 H Respiratory Rate 18 19 Blood Pressure 118/69 Blood Pressure [Right Arm] 145/79 H Blood Pressure Mean Blood Pressure Mean [Right Arm] 101 Blood Pressure Source [Right Arm] Automatic Cuff Blood Pressure Position [Right Arm] Sitting 02 Sat by Pulse Oximetry 98 99 Oxygen Delivery Method Room Air 08/22/24 11:12 08/22/24 12:00 08/22/24 12:31 Temperature Temperature Source Pulse Rate 104 H 96 H 94 H Pulse Rate [Apical] Respiratory Rate 17 15 22 Blood Pressure 137/75 143/65 H 135/67 Blood Pressure [Right Arm] Blood Pressure Mean 94 Blood Pressure Mean [Right Arm] Blood Pressure Source [Right Arm] Blood Pressure Position [Right Arm] 02 Sat by Pulse Oximetry 98 97 98 Oxygen Delivery Method Room Air Room Air Room Air 08/22/24 13:23 Temperature 98.5 F Temperature Source Pulse Rate 87 Pulse Rate [Apical] Respiratory Rate 14 Blood Pressure 135/67 Blood Pressure [Right Arm] Blood Pressure Mean Blood Pressure Mean [Right Arm] Blood Pressure Source [Right Arm] Blood Pressure Position [Right Arm] 02 Sat by Pulse Oximetry Oxygen Delivery Method Lab Data Lab results reviewed: Yes I reviewed the patient's lab results. Labs: Lab Results 08/22/24 10:42: WBC 13.2 H, RBC 5.12, Hgb 12.6, Hct 40.0, MCV 78.1 L, MCH 24.6 L, MCHC 31.5 L, RDW 16.0, Plt Count 386, MPV 9.1, Neut % (Auto) 74.4, Lymph % (Auto) 17.3, [place] % (Auto) 5.2, Eos % (Auto) 2.3, Baso % (Auto) 0.2, Neut # (Auto) 9.8 H, Lymph # (Auto) 2.3, [place] # (Auto) 0.7, Eos # (Auto) 0.3, Baso # (Auto) 0.0, PT 10.2, INR 0.90, D-Dimer 0.32, Sodium 138, Potassium 3.7, Chloride 108 H, Carbon Dioxide 24, Anion Gap 9.7, BUN 8, Creatinine 0.70, Estimated Creat Clear 105, Estimated GFR 95, Est GFR ( Amer) 115, Glucose 164 H, Calcium 9.1, Magnesium 1.8, Total Bilirubin 0.2, AST 30, ALT 32, Alkaline Phosphatase 95, Troponin I < 0.01, NT-Pro-B Natriuret Pep 33.3, Total Protein 7.3, Albumin 4.2, Globulin 3.1, Albumin/Globulin Ratio 1.4, Lipase 83, Serum HCG, Qual Negative, HCV Ab MARNI w/Rflx PCR Qn Negative, HIV Ag/Ab Combo Qual Negative 08/22/24 11:22: Lactate 1.1 08/22/24 12:37: Urine Color Yellow, Urine Appearance Clear, Urine pH 5.5, Ur Specific [place] <= 1.005, Urine Protein Negative, Urine Glucose (UA) Negative, Urine Ketones Negative, Urine Blood Trace-i, Urine Nitrate Negative, Urine Bilirubin Negative, Urine Urobilinogen 0.2, Ur Leukocyte Esterase Negative, Urine RBC Occasional, Urine WBC None, Ur Squamous Epith Cells Occasional, Urine Bacteria None 08/22/24 10:42 08/22/24 10:42 Response Orders (Tests/Meds): ED MEDICATIONS Discontinued Medications Generic Name Dose Route Start Last Admin Trade Name Cornelioq PRN Reason Stop Dose Admin Iopamidol 75 ml 08/22/24 11:31 08/22/24 11:32 Iopamidol-370 (76%);100ml Bottle IV 08/22/24 11:32 75 ml ONCE ONE Administration Morphine Sulfate 4 mg 08/22/24 10:55 08/22/24 11:09 Morphine 4mg/Ml Syringe IV 08/22/24 10:56 4 mg ONCE ONE Administration Ondansetron HCl 4 mg 08/22/24 10:55 08/22/24 11:07 Ondansetron 4mg/2ml Vial IV 08/22/24 10:56 4 mg ONCE ONE Administration Sodium Chloride 10 ml 08/22/24 11:31 08/22/24 11:32 Sodium Chloride 0.9% 10ml Syr (Rad Only) IV 09/21/24 11:30 10 ml NEEDED PRN Administration Maintain IV Site ORDERS Category Date Time Status CT abdomen pelvis w con Stat Cat Scan 08/22/24 10:54 Taken XR chest portable Stat Exams 08/22/24 10:55 Taken Complete Blood Count Auto Diff Stat Lab 08/22/24 10:42 Completed Comprehensive Metabolic Panel Stat Lab 08/22/24 10:42 Completed D-Dimer Stat Lab 08/22/24 10:42 Completed HCG Qualitative, Serum Stat Lab 08/22/24 10:42 Completed HIV Combo Stat Lab 08/22/24 10:42 Completed Hepatitis C Ab Qual. W/ RFX Stat Lab 08/22/24 10:42 Completed Lactic Acid Stat Lab 08/22/24 11:22 Completed Lipase Stat Lab 08/22/24 10:42 Completed Magnesium Stat Lab 08/22/24 10:42 Completed NT Pro Brain Natriuretic Pep. Stat Lab 08/22/24 10:42 Completed PT INR [Prothrombin Time INR] Stat Lab 08/22/24 10:42 Completed Troponin I Stat Lab 08/22/24 10:42 Completed Urinalysis and Microscopic Stat Lab 08/22/24 12:37 Completed MDM Narrative Medical Decision Narrative: 33-year-old female presents the emergency department with chest pain/heaviness, dizziness and left groin pain, for the last 2 days, differential diagnosis include but not limited to ACS, cardiac arrhythmia, electrolyte disturbance, PE, costochondritis, pneumonia, pancreatitis, diverticulitis, acute UTI, acute pyelonephritis, nephrolithiasis, ureterolithiasis, pneumothorax, COPD exacerbation among others. I discussed patient case with attending physician Dr. Samano Will obtain basic laboratory studies, hCG qualitative, lactic acid level lipase level magnesium level proBNP PT/INR, troponin, urinalysis, chest x-ray, CT and pelvis with contrast further evaluation of characterization, EKG, will give 4 mg IV morphine for pain and 4 mg Zofran for nausea. CBC notable for leukocytosis, that is minimal and decreased MCV otherwise unremarkable. Coags within normal limits D-dimer 0.32, thus ruling out VTE/PE First troponin is within normal limits at less than 0.01 I reviewed the patient's CT abdomen pelvis with contrast along the corresponding radiologic report, prominent hepatomegaly and fatty liver, nodule in right lower quadrant which is indeterminate but similar to previous exam, pelvic venous congestion, I reviewed the patient's chest x-ray on the corresponding radiologic report, underinflation mild atelectasis the right lung base. Urine is negative. Heart score is 1 Reexamination of the patient at approximately 1:08 PM, I discussed all results with the patient at the bedside, patient's chest pain is improved, groin pain is still present, would recommend follow-up for possible pelvic venous congestion syndrome, chest pain is indicative and noncardiac in nature of normal troponin, her chest pain has been ongoing for several days, negative D-dimer, negative imaging studies, patient is cleared to be discharged home to self-care, could be pleurisy or other causes of noncardiac chest pain, patient was given strict ED return precautions, patient will follow-up with PCP and [facility] SIL[facility] provider as directed. Patient voiced understanding and agreed with current treatment plan/discharge plan. Of note, prior to discharge patient would like me to prescribe antiemetics to her pharmacy, I will prescribe 25 mg meclizine p.o. to take as needed for dizziness, as well as 4 mg p.o. Zofran. <Matias Samano MD - Last Filed: 08/22/24 23:16> Vital Signs Vital Signs: 08/22/24 10:44 08/22/24 10:51 08/22/24 11:00 Temperature 98.5 F Temperature Source Oral Pulse Rate 104 H 96 H Pulse Rate [Apical] 104 H Respiratory Rate 18 19 Blood Pressure 118/69 Blood Pressure [Right Arm] 145/79 H Blood Pressure Mean Blood Pressure Mean [Right Arm] 101 Blood Pressure Source [Right Arm] Automatic Cuff Blood Pressure Position [Right Arm] Sitting 02 Sat by Pulse Oximetry 98 99 Oxygen Delivery Method Room Air 08/22/24 11:12 08/22/24 12:00 08/22/24 12:31 Temperature Temperature Source Pulse Rate 104 H 96 H 94 H Pulse Rate [Apical] Respiratory Rate 17 15 22 Blood Pressure 137/75 143/65 H 135/67 Blood Pressure [Right Arm] Blood Pressure Mean 94 Blood Pressure Mean [Right Arm] Blood Pressure Source [Right Arm] Blood Pressure Position [Right Arm] 02 Sat by Pulse Oximetry 98 97 98 Oxygen Delivery Method Room Air Room Air Room Air 08/22/24 13:23 Temperature 98.5 F Temperature Source Pulse Rate 87 Pulse Rate [Apical] Respiratory Rate 14 Blood Pressure 135/67 Blood Pressure [Right Arm] Blood Pressure Mean Blood Pressure Mean [Right Arm] Blood Pressure Source [Right Arm] Blood Pressure Position [Right Arm] 02 Sat by Pulse Oximetry Oxygen Delivery Method Lab Data Labs: Lab Results 08/22/24 10:42: WBC 13.2 H, RBC 5.12, Hgb 12.6, Hct 40.0, MCV 78.1 L, MCH 24.6 L, MCHC 31.5 L, RDW 16.0, Plt Count 386, MPV 9.1, Neut % (Auto) 74.4, Lymph % (Auto) 17.3, [place] % (Auto) 5.2, Eos % (Auto) 2.3, Baso % (Auto) 0.2, Neut # (Auto) 9.8 H, Lymph # (Auto) 2.3, [place] # (Auto) 0.7, Eos # (Auto) 0.3, Baso # (Auto) 0.0, PT 10.2, INR 0.90, D-Dimer 0.32, Sodium 138, Potassium 3.7, Chloride 108 H, Carbon Dioxide 24, Anion Gap 9.7, BUN 8, Creatinine 0.70, Estimated Creat Clear 105, Estimated GFR 95, Est GFR ( Amer) 115, Glucose 164 H, Calcium 9.1, Magnesium 1.8, Total Bilirubin 0.2, AST 30, ALT 32, Alkaline Phosphatase 95, Troponin I < 0.01, NT-Pro-B Natriuret Pep 33.3, Total Protein 7.3, Albumin 4.2, Globulin 3.1, Albumin/Globulin Ratio 1.4, Lipase 83, Serum HCG, Qual Negative, HCV Ab MARNI w/Rflx PCR Qn Negative, HIV Ag/Ab Combo Qual Negative 08/22/24 11:22: Lactate 1.1 08/22/24 12:37: Urine Color Yellow, Urine Appearance Clear, Urine pH 5.5, Ur Specific [place] <= 1.005, Urine Protein Negative, Urine Glucose (UA) Negative, Urine Ketones Negative, Urine Blood Trace-i, Urine Nitrate Negative, Urine Bilirubin Negative, Urine Urobilinogen 0.2, Ur Leukocyte Esterase Negative, Urine RBC Occasional, Urine WBC None, Ur Squamous Epith Cells Occasional, Urine Bacteria None Response Orders (Tests/Meds): ED MEDICATIONS Discontinued Medications Generic Name Dose Route Start Last Admin Trade Name Shellie PRN Reason Stop Dose Admin Iopamidol 75 ml 08/22/24 11:31 08/22/24 11:32 Iopamidol-370 (76%);100ml Bottle IV 08/22/24 11:32 75 ml ONCE ONE Administration Morphine Sulfate 4 mg 08/22/24 10:55 08/22/24 11:09 Morphine 4mg/Ml Syringe IV 08/22/24 10:56 4 mg ONCE ONE Administration Ondansetron HCl 4 mg 08/22/24 10:55 08/22/24 11:07 Ondansetron 4mg/2ml Vial IV 08/22/24 10:56 4 mg ONCE ONE Administration Sodium Chloride 10 ml 08/22/24 11:31 08/22/24 11:32 Sodium Chloride 0.9% 10ml Syr (Rad Only) IV 09/21/24 11:30 10 ml NEEDED PRN Administration Maintain IV Site ORDERS Category Date Time Status CT abdomen pelvis w con Stat Cat Scan 08/22/24 10:54 Taken XR chest portable Stat Exams 08/22/24 10:55 Taken Complete Blood Count Auto Diff Stat Lab 08/22/24 10:42 Completed Comprehensive Metabolic Panel Stat Lab 08/22/24 10:42 Completed D-Dimer Stat Lab 08/22/24 10:42 Completed HCG Qualitative, Serum Stat Lab 08/22/24 10:42 Completed HIV Combo Stat Lab 08/22/24 10:42 Completed Hepatitis C Ab Qual. W/ RFX Stat Lab 08/22/24 10:42 Completed Lactic Acid Stat Lab 08/22/24 11:22 Completed Lipase Stat Lab 08/22/24 10:42 Completed Magnesium Stat Lab 08/22/24 10:42 Completed NT Pro Brain Natriuretic Pep. Stat Lab 08/22/24 10:42 Completed PT INR [Prothrombin Time INR] Stat Lab 08/22/24 10:42 Completed Troponin I Stat Lab 08/22/24 10:42 Completed Urinalysis and Microscopic Stat Lab 08/22/24 12:37 Completed ECG Data Tracing #1: Attestation: I reviewed this ECG and interpreted as documented below: ECG Narrative: Sinus tachycardia. No ST elevation or depression. QTc within normal limits MDM Narrative Medical Decision Narrative: 33-year-old female presents the emergency department with chest pain/heaviness, dizziness and left groin pain, for the last 2 days, differential diagnosis include but not limited to ACS, cardiac arrhythmia, electrolyte disturbance, PE, costochondritis, pneumonia, pancreatitis, diverticulitis, acute UTI, acute pyelonephritis, nephrolithiasis, ureterolithiasis, pneumothorax, COPD exacerbation among others. I discussed patient case with attending physician Dr. Samano Will obtain basic laboratory studies, hCG qualitative, lactic acid level lipase level magnesium level proBNP PT/INR, troponin, urinalysis, chest x-ray, CT and pelvis with contrast further evaluation of characterization, EKG, will give 4 mg IV morphine for pain and 4 mg Zofran for nausea. CBC notable for leukocytosis, that is minimal and decreased MCV otherwise unremarkable. Coags within normal limits D-dimer 0.32, thus ruling out VTE/PE First troponin is within normal limits at less than 0.01 I reviewed the patient's CT abdomen pelvis with contrast along the corresponding radiologic report, prominent hepatomegaly and fatty liver, nodule in right lower quadrant which is indeterminate but similar to previous exam, pelvic venous congestion, I reviewed the patient's chest x-ray on the corresponding radiologic report, underinflation mild atelectasis the right lung base. Urine is negative. Heart score is 1 Reexamination of the patient at approximately 1:08 PM, I discussed all results with the patient at the bedside, patient's chest pain is improved, groin pain is still present, would recommend follow-up for possible pelvic venous congestion syndrome, chest pain is indicative and noncardiac in nature of normal troponin, her chest pain has been ongoing for several days, negative D-dimer, negative imaging studies, patient is cleared to be discharged home to self-care, could be pleurisy or other causes of noncardiac chest pain, patient was given strict ED return precautions, patient will follow-up with PCP and [facility] SIL[facility] provider as directed. Patient voiced understanding and agreed with current treatment plan/discharge plan. Of note, prior to discharge patient would like me to prescribe antiemetics to her pharmacy, I will prescribe 25 mg meclizine p.o. to take as needed for dizziness, as well as 4 mg p.o. Zofran. I was consulted by the DIETER, and we discussed the complexity of the problems being addressed. I approve the treatment and management plan for this patient's care in the emergency department, thus performing a substantive portion of the medical decision making. Matias Samano MD
[2024-08-22 11:01] LABS: Basophils % 0.2 % (0.1-2.0); Eosinophils # 0.3 Kmm3 (0.0-0.4); Eosinophils % 2.3 % (0.1-12.0); Hemoglobin 12.6 g/dL (12.2-16.2); Immature Granulocytes # 0.08 10^3uL; Immature Granulocytes % 0.6 %; Lymphocytes # 2.3 K/mm3 (0.7-4.5); Lymphocytes % 17.3 % (10-50); Mean Corpuscular HGB Conc 31.5 g/dL (31.8-35.4); Mean Corpuscular Hemoglobin 24.6 pg (27.0-31.2); Mean Corpuscular Volume 78.1 fl (81-99); Mean Platelet Volume 9.1 fl (7.4-10.4); Monocytes # 0.7 K/mm3 (0.1-1.0); Monocytes % 5.2 % (1.7-9.3); Neutrophils # 9.8 K/mm3 (1.8-7.8); Neutrophils % 74.4 % (37.0-80.0); Nucleated Red Blood Cells # 0 10^3/uL; Nucleated Red Blood Cells % 0 %; Platelet Count 386 K/mm3 (142-424); Red Blood Count 5.12 M/mm3 (4.20-5.40); Red Cell Distribution Width-SD 45.3 fL; White Blood Count 13.2 K/mm3 (4.8-10.8)
[2024-08-22 11:07] LABS: Prothrombin Time 10.2 seconds (10.1-12.5)
[2024-08-22] MEDS: ONDANSETRON 4MG/2ML VIAL 4 MG IV (11:07)
[2024-08-22] MEDS: MORPHINE 4MG/ML SYRINGE 4 MG IV (11:09)
[2024-08-22 11:13] LABS: Albumin Level 4.2 g/dl (3.5-5.0); Chloride 108 mmol/L (98-107); Potassium 3.7 mmoL/L (3.5-5.1); Sodium 138 mmol/L (136-145)
[2024-08-22 11:15] LABS: Blood Urea Nitrogen 8 mg/dl (7-17); Creatinine Clearance Estimated 105 mL/min (50-200); Estimated Glomerular Filt Rate 95 ml/min (>60); GFR (African American) 115 ML/MIN (>60)
[2024-08-22 11:16] LABS: Alanine Aminotransferase 32 U/L (12-78); Albumin/Globulin Ratio 1.4 (1.1-1.8); Alkaline Phosphatase 95 U/L (38-126); Anion Gap 9.7 mEq/L (5-15); Aspartate Amino Transferase 30 U/L (14-36); Bilirubin,Total 0.2 mg/dl (0.2-1.3); Calcium 9.1 mg/dl (8.4-10.2); Carbon Dioxide 24 mmol/L (22.0-30.0); Globulin 3.1 g/dL (1.3-3.2); Glucose 164 mg/dl (74-100); Lipase 83 U/L (23-300); Magnesium 1.8 mg/dl (1.6-2.3); Total Protein,Serum 7.3 g/dl (6.3-8.2)
[2024-08-22 11:22] LABS: HCG Qualitative, Serum Negative (Negative)
[2024-08-22 11:25] LABS: NT Pro Brain Natriuretic Pep. 33.3 pg/mL (0-125)
--- NOTE | 2024-08-22 11:30 | PC.NURSE ---
ROUNDED ON PT, ROOM DARKENED. NO NEEDS AT THIS TIME. CALL LIGHT WITHIN REACH
[2024-08-22 11:32] LABS: D-Dimer 0.32 ug/mL (0.0-0.5)
[2024-08-22] MEDS: SODIUM CHLORIDE 0.9% 10ML SYR (RAD ONLY) 10 ML IV (11:32)
[2024-08-22] MEDS: IOPAMIDOL-370 (76%);100ML BOTTLE 75 ML IV (11:32)
[2024-08-22 11:38] LABS: Lactic Acid 1.1 mmol/L (0.7-2.1)
[2024-08-22 11:49] LABS: Troponin I < 0.01 ng/ml (0.00-0.034)
--- NOTE | 2024-08-22 12:03 | PC.NURSE ---
ROUNDED ON PT, TALKING ON PHONE. PAIN IMPROVED. NO NEEDS AT THIS TIME. CALL LIGHT WITHIN REACH
[2024-08-22 12:20] LABS: HIV Combo NEGATIVE (Negative)
[2024-08-22 12:28] LABS: Hepatitis C Ab Qual. W/ RFX NEGATIVE (Negative)
[2024-08-22 12:42] LABS: Microscopic, Urine URINE MICROSCOPIC (MICROSCOPIC)
[2024-08-22 12:46] LABS: Appearance,Urine CLEAR (Clear); Bilirubin,Urine Negative (Negative); Blood, Urine TRACE-I (Negative); Color,Urine YELLOW (Yellow); Glucose,Urine (UA) Negative (Negative); Ketones,Urine Negative (Negative); Leukocyte Esterase,Urine Negative (Negative); Nitrate,Urine Negative (Negative); PH,Urine 5.5 (5.0-8.5); Protein,Urine Negative (Negative); Specific Gravity, Urine <= 1.005 (1.005-1.030); Urobilinogen,Urine 0.2 EU/dl (0.2)
[2024-08-22 13:24] LABS: RBC,Urine Occasional #/hpf (0-3); Squamous Epithelial Cell,Urine Occasional #/hpf (0-5)
== END 2024-08-22 13:28 | disposition home or self-care (01) ==
PROVIDERS: Physician Assistant; Emergency Provider Student in an Organized Health Care Education/Training Program
DX: R07.89 Other chest pain (principal); R10.2 Pelvic and perineal pain; R00.0 Tachycardia, unspecified; R06.02 Shortness of breath; R11.0 Nausea; F17.210 Nicotine dependence, cigarettes, uncomplicated; Z11.59 Encounter for screening for other viral diseases; Z11.4 Encounter for screening for human immunodeficiency virus [HIV]
CPT/HCPCS: 71045; 74177; 80053; 81001; 83605; 83690; 83735; 83880; 84484; 84703; 85025; 85378; 85610; 86803; 87389; 93005; 96374; 96375; 99285; J2270; J2405; Q9967

== ENCOUNTER 2024-11-25 02:32 | Emergency (ER) | payer BC, SELFPAY ==
[2024-11-25] VITALS (7 sets, daily range): BP systolic 127–133; BP diastolic 78–87; PULSE 86–121; RESP 16–20; TEMP 36.8–37; O2SAT 96–99; BMI 34.7
--- NOTE | 2024-11-25 02:37 | XR_ITS ---
PROCEDURE INFORMATION: Exam: XR Abdomen Exam date and time: 11/25/2024 2:50 AM Age: 34 years old Clinical indication: Abdominal pain; Additional info: Abd pain TECHNIQUE: Imaging protocol: Radiologic exam of the abdomen. Views: Frontal supine view of the abdomen. 1 View. COMPARISON: CT ABDOMEN PELVIS W CON 08/22/2024 11:32 AM FINDINGS: Gastrointestinal tract: Normal. No bowel dilation. Bones/joints: Unremarkable. IMPRESSION: No acute findings.
--- NOTE | 2024-11-25 02:38 | HMH.EDGENADL ---
Discharge Plan Disposition Patient Disposition: Home, Self-Care Prescriptions Prescriptions: New ondansetron HCl 4 mg tablet 4 mg PO Q8H PRN (Reason: nausea and vomiting) 5 Days Qty: 30 1RF sulfamethoxazole-trimethoprim 800-160 mg tablet 1 tab PO BID 7 Days Qty: 14 0RF No Action medroxyprogesterone 150 mg/mL suspension 150 mg IM [id number] Qty: 1 5RF dextroamphetamine-amphetamine 20 mg capsule,extended release 24hr 20 mg PO DAILY 30 Days Qty: 30 0RF Rexulti 1 mg tablet 1 mg PO DAILY Qty: 30 2RF escitalopram oxalate [Lexapro] 10 mg tablet 10 mg PO DAILY Qty: 30 2RF cefdinir 300 mg capsule 300 mg PO BID Qty: 20 0RF ondansetron 4 mg tablet,disintegrating 4 mg PO Q6H PRN (Reason: nausea and vomiting) Qty: 14 0RF meclizine 25 mg tablet 25 mg PO DAILY PRN (Reason: motion sickness) Qty: 10 0RF Referrals Follow up/Referrals: Laura Chaidez PA [Primary Care Provider, Medical] - See instructions Activity Restrictions/Add. Instructions Additional Instructions/Restrictions: Please take antibiotics as prescribed for treatment of urinary tract infection. Please follow-up with your primary care provider. Please return to the emergency department if you develop any new or worsening symptoms or become concerned for your health. Clinical Impressions Clinical Impression: UTI (urinary tract infection), Gastroenteritis Stand Alone Forms Stand Alone Forms: Work/School Release Instructions Patient Instructions: DI for Acute Abdominal Pain Print Language Print Language: Yi Discharge ED Provider: Job Carpenter General Adult HPI General Chief complaint: Abdominal Pain Stated complaint: abd cramps, nausea, vomiting, diarrhea Time Seen by Provider: 11/25/24 02:38 History of Present Illness HPI narrative: 34-year-old female with history of obesity, pancreatitis, smoking, presents for lower abdominal pain, nausea vomiting and diarrhea. Symptoms have been ongoing since Thursday and have been worsening. She reports that it does not feel like pancreatitis. She denies significant urinary symptoms. Related Data Previous Rx's ?Medication ?Instructions ?Recorded medroxyprogesterone 150 mg/mL 150 mg IM [id number] #1 mL 05/25/23 intramuscular suspension cefdinir 300 mg capsule 300 mg PO BID #20 caps 12/16/23 dextroamphetamine-amphetamine ER 20 mg PO DAILY 30 days #30 caps 01/04/24 20 mg 24hr capsule,extend release brexpiprazole 1 mg tablet (Rexulti) 1 mg PO DAILY #30 tabs 01/14/24 escitalopram oxalate 10 mg tablet 10 mg PO DAILY #30 tabs 01/14/24 (Lexapro) meclizine 25 mg tablet 25 mg PO DAILY PRN motion sickness 08/22/24 #10 tabs ondansetron 4 mg disintegrating 4 mg PO Q6H PRN nausea and 08/22/24 tablet vomiting #14 tabs ondansetron HCl 4 mg tablet 4 mg PO Q8H PRN nausea and 11/25/24 vomiting 5 days #30 tabs sulfamethoxazole 800 1 tab PO BID 7 days #14 tabs 11/25/24 mg-trimethoprim 160 mg tablet Allergies Allergy/AdvReac Type Severity Reaction Status Date / Time amoxicillin (From AUGMENTIN) Allergy Intermediate I-HIVES Verified 07/05/24 14:57 clavulanic acid (From Allergy Intermediate I-HIVES Verified 07/05/24 14:57 AUGMENTIN) penicillin G (PENICILLIN G) Allergy Intermediate I-HIVES Verified 07/05/24 14:57 sumatriptan (From IMITREX) Allergy Unknown Verified 07/05/24 14:57 vortioxetine (From AdvReac Intermediate nausea Verified 07/05/24 14:57 Trintellix) [facility] Disclaimer: The information contained in this section may have been updated after the patient was seen, as this information can be updated by other users. Medical History Elevated cortisol level Major depressive disorder [place] injury accident Depression Tobacco dependence Anxiety and depression Attention Deficit Hyperactivity Disorder (ADHD) Initiation of Depo Provera Body mass index (BMI) of 40.1 to 44.9 in adult Surgical History History of delivery History of ERCP History of cholecystectomy Family History Mother FHx: mental illness depression Social History Smoking Status: Current every day smoker tobacco type: cigarettes packs per day: 1 quit status: considering quitting second hand exposure: No alcohol intake: current alcohol intake frequency: a few times a month counseling given: No substance use type: denies use current occupational status: employed Travel in the last 8 weeks?: None adopted: No caregiver/support person: No foster care: No household members: family housing: house marital status: other details: she is engaged; will be on January 11 number of children: 1 number of grandchildren: 0 education level: college service: No skilled nursing: No 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; 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 pets and animals: Yes pets and animals: cat(s) and dog(s) Hx Recent Travel: No sexually active: Yes physical activity: none working smoke detector in home: Yes fire extinguisher in home: No carbon monox detector in home: No firearms in home: Yes firearms unloaded and locked: Yes do you feel safe at home: Yes victim of physical abuse: No victim of emotional abuse: No victim of sexual abuse: No would you like helpful sources: No Have you lived/traveled outside [place] in past 30 days?: No Contact w/someone who lives/traveled outside [place] past 30 days?: No Exposure to someone with infectious disease in past 14 days?: No Do you have a fever (greater than 100.4 F or 38 C)?: No Have you tested positive for COVID-19?: No Exposed to someone with COVID-19 in past 14 days?: No Do you have a sore throat?: No Do you have a cough?: No Do you have any weakness?: No Do you have any diarrhea?: Yes Are you experiencing any unusual bleeding?: Yes Do you have any muscle aches/pain?: No Do you have any abdominal pain?: Yes Are you experiencing loss of taste or smell?: No Other Medical History Have you received the Flu Vaccine for this season: Yes Have you received the Pneumonia Vaccine: Yes ROS Obtained: Yes All systems reviewed & no additional complaints except as documented Physical Exam General General appearance: alert Comment: Uncomfortable appearing Head Head exam: atraumatic and normocephalic Eye Eye exam: Present normal appearance, PERRL and EOMI ENT ENT exam: Present normal oropharynx and normal external ear exam Neck Neck exam: Present normal inspection and full ROM Chest Chest inspection: Present normal inspection and symmetric chest wall rise; Absent tenderness Respiratory Respiratory exam: Present normal lung sounds bilaterally; Absent respiratory distress Cardiovascular Cardiovascular exam: Present regular rate and normal rhythm Abdominal Exam Abdominal exam: Present soft and tenderness (Midline lower abdominal pain); Absent distention or guarding Extremities Exam Extremities exam: Present normal inspection; Absent edema or joint swelling Back Exam Back exam: Present normal inspection; Absent tenderness Neurological Exam Neurological exam: Present alert and oriented X3; Absent motor sensory deficit Psychiatric Psychiatric exam: Present normal affect and normal mood Skin Skin exam: Present warm, dry and normal color Lymphatic Lymphatic Findings: no adenopathy Medical Decision Making Medical Records Medical records reviewed: Yes I reviewed the patient's medical records. Screening: Per USPSTF and CDC recommendations, given the prevalence of disease in our region, it is our hospital?s policy to screen for HIV and viral Hepatitis for all patients aged 18 and over and those with ongoing risk factors. Aung Inquiry Pt receiving controlled substance: No Aung was queried for this patient: No Vital Signs: 11/25/24 02:36 11/25/24 02:36 11/25/24 02:37 Temperature 98.6 F Temperature Source Oral Pulse Rate 121 H Pulse Rate [Left Radial] 99 H Respiratory Rate 20 Blood Pressure 130/79 Blood Pressure [Right Arm] 130/79 Blood Pressure Mean 85 Blood Pressure Mean [Right Arm] 96 Blood Pressure Source [Right Arm] Automatic Cuff Blood Pressure Position [Right Arm] Sitting 02 Sat by Pulse Oximetry 97 99 Oxygen Delivery Method Room Air 11/25/24 03:15 11/25/24 03:29 11/25/24 03:29 Temperature Temperature Source Pulse Rate 102 H 102 H Pulse Rate [Left Radial] Respiratory Rate Blood Pressure 127/87 Blood Pressure [Right Arm] Blood Pressure Mean 94 Blood Pressure Mean [Right Arm] Blood Pressure Source [Right Arm] Blood Pressure Position [Right Arm] 02 Sat by Pulse Oximetry 97 97 Oxygen Delivery Method 11/25/24 03:30 11/25/24 03:45 Temperature Temperature Source Pulse Rate 86 Pulse Rate [Left Radial] Respiratory Rate Blood Pressure 131/80 Blood Pressure [Right Arm] Blood Pressure Mean 94 Blood Pressure Mean [Right Arm] Blood Pressure Source [Right Arm] Blood Pressure Position [Right Arm] 02 Sat by Pulse Oximetry 96 Oxygen Delivery Method Lab Data Lab results reviewed: Yes I reviewed the patient's lab results. Lab Results 11/25/24 02:15: WBC 15.5 H, RBC 5.19, Hgb 12.8, Hct 39.9, MCV 76.9 L, MCH 24.7 L, MCHC 32.1, RDW 15.1, Plt Count 367, MPV 8.8, Neut % (Auto) 70.9, Lymph % (Auto) 18.9, [place] % (Auto) 6.7, Eos % (Auto) 2.7, Baso % (Auto) 0.2, Neut # (Auto) 11.0 H, Lymph # (Auto) 2.9, [place] # (Auto) 1.0, Eos # (Auto) 0.4, Baso # (Auto) 0.0, Sodium 138, Potassium 3.5, Chloride 107, Carbon Dioxide 21 L, Anion Gap 13.5, BUN 6 L, Creatinine 0.80, Estimated Creat Clear 150, Estimated GFR 81, Est GFR ( Amer) 98, Glucose 112 H, Calcium 9.2, Magnesium 1.9, Total Bilirubin 0.4, AST 29, ALT 25, Alkaline Phosphatase 99, Total Protein 7.7, Albumin 4.2, Globulin 3.5 H, Albumin/Globulin Ratio 1.2, Lipase 51 11/25/24 02:45: Serum HCG, Qual Negative 11/25/24 02:54: Urine Color Yellow, Urine Appearance Turbid, Urine pH 6.0, Ur Specific [place] 1.025, Urine Protein 2+ A, Urine Glucose (UA) Negative, Urine Ketones Trace, Urine Blood 1+ A, Urine Nitrate Positive A, Urine Bilirubin 1+ A, Urine Urobilinogen 0.2, Ur Leukocyte Esterase Trace, Urine RBC 3-5, Urine WBC 3-5, Ur Squamous Epith Cells 20-50, Amorphous Sediment 1+, Urine Bacteria 2+ 11/25/24 02:15 11/25/24 02:15 Orders (Tests/Meds): ED MEDICATIONS Discontinued Medications Generic Name Dose Route Start Last Admin Trade Name Freq PRN Reason Stop Dose Admin Acetaminophen 1,000 mg 11/25/24 02:38 11/25/24 02:49 Acetaminophen 1,000mg/100ml Vial IV 11/25/24 02:39 1,000 mg ONCE ONE Administration Droperidol 2.5 mg 11/25/24 02:37 11/25/24 02:48 Droperidol 5mg/2ml Vial IV 11/25/24 02:38 2.5 mg ONCE ONE Administration Lactated Ringer's 1,000 mls @ 999 mls/hr 11/25/24 02:45 11/25/24 02:49 Lactated Ringer's 1000 Ml Bag IV 11/25/24 03:45 999 mls/hr .Q1H1M KEEGAN Administration Lactated Ringer's 1,000 mls @ 999 mls/hr 11/25/24 02:45 11/25/24 03:49 Lactated Ringer's 1000 Ml Bag IV 11/25/24 03:45 999 mls/hr .Q1H1M KEEGAN Administration Trimethoprim/Sulfamethoxazole 1 each 11/25/24 03:51 11/25/24 04:04 Sulfa/Trimethoprim 1 Tablet PO 11/25/24 03:52 1 each ONCE ONE Administration ORDERS Category Date Time Status KUB (single view) [XR KUB] Stat Exams 11/25/24 02:37 Taken CBC w/Auto Diff [Complete Blood Count Auto Diff] Stat Lab 11/25/24 02:15 Completed CMP [Comprehensive Metabolic Panel] Stat Lab 11/25/24 02:15 Completed Diarrhea 23 Panel, PCR Stat Lab 11/25/24 02:37 Ordered HIV Combo Routine Lab 11/25/24 02:45 Received Hepatitis C Ab Qual. W/ RFX Routine Lab 11/25/24 02:45 Received Lipase Stat Lab 11/25/24 02:15 Completed Magnesium Stat Lab 11/25/24 02:15 Completed Serum [HCG Qualitative, Serum] Stat Lab 11/25/24 02:45 Completed UA [Urinalysis and Microscopic] Stat Lab 11/25/24 02:54 Completed Urine Culture Stat Micro 11/25/24 02:54 Received ECG Data Tracing #1: Sinus tachycardia, rate of 117, no significant ST changes. ECG initial impression date: 11/25/24 ECG initial impression time: 02:42 Medical Decision Narrative: 34-year-old female with history of pancreatitis presents for 5 days of lower abdominal pain and nausea vomiting and diarrhea. History was obtained via interactive discussion with patient. On arrival, patient is [afebrile, hemodynamically stable, satting appropriately, alert, oriented x4, GCS 15], moving all extremities spontaneously. Full physical exam performed and significant for mild midline lower abdominal tenderness Differential includes but is not limited to gastroenteritis, pancreatitis, UTI, pyelonephritis, diverticulitis, dehydration. Patient was given droperidol, IV Tylenol, 2 L IV fluid for symptomatic management and correction of underlying abnormalities. Workup initiated including CBC CMP lipase KUB test UA diarrhea panel. On re-evaluation, patient reports marked symptomatic improvement. Laboratory workup independently interpreted by me and significant for urinalysis concerning for infection, nitrate positive, positive bacteria. No significant renal dysfunction, normal electrolytes.. Imaging independently interpreted by me and significant for KUB without evidence of obstruction or significant stool burden. See radiology read for full review of final results. Given patient history, exam and workup, patient's presentation most likely represents gastroenteritis and urinary tract infection. Patient was initiated on Bactrim for treatment of cystitis. Patient was monitored after droperidol administration but reports that she feels better and would like to go home now. Given this she was discharged in stable condition with prescription for Bactrim and Zofran. Return precautions given. Procedures Risk/Benefits of Procedure(s) Were Explained: Yes Critical Care Critical Care Time Critical Care Time: No
--- NOTE | 2024-11-25 02:40 | PC.NURSE ---
Pt awake alert and oriented Skin pnk warm and dry REsp full and easy Speech clear and appropriate Abd soft and tender in lower quadrants +bowel sounds x4. Pt states she has been vomiting and having diarrhea Assisted to the restroom to obtain UA. urine collected and sent to lab IV site without redness or edema
--- NOTE | 2024-11-25 02:42 | ECG_ITS ---
APPROVED REPORT Exam: Resting ECG HR:117 bpm ECG Measurements Heart Rate 117 AXES NC 157 P 48 QRSd 96 QRS 98 QT 331 T 43 QTc 401 Conclusion SINUS TACHYCARDIA BORDERLINE RIGHT AXIS DEVIATION [QRS AXIS > 90] ABNORMAL RHYTHM ECG UNCONFIRMED REPORT Electronically signed by : KAYKAY DOVE, 11/26/2024 06:53:55
[2024-11-25] MEDS: droPERidol 5MG/2ML VIAL 2.5 MG IV (02:48)
[2024-11-25 02:49] LABS: Hematocrit 39.9 % (37.0-47.0); Hemoglobin 12.8 g/dL (12.2-16.2); Immature Granulocytes % 0.6 %; Mean Corpuscular HGB Conc 32.1 g/dL (31.8-35.4); Mean Corpuscular Hemoglobin 24.7 pg (27.0-31.2); Mean Corpuscular Volume 76.9 fl (81-99); Nucleated Red Blood Cells % 0 %; Platelet Count 367 K/mm3 (142-424); Red Blood Count 5.19 M/mm3 (4.20-5.40); Red Cell Distribution Width-SD 41.9 fL; White Blood Count 15.5 K/mm3 (4.8-10.8)
[2024-11-25] MEDS: LACTATED RINGERS 1000ML 1,000 ML 999 ML IV ×2 (02:49→03:49)
[2024-11-25] MEDS: ACETAMINOPHEN 1,000MG/100ML VIAL 1000 MG IV (02:49)
[2024-11-25 02:55] LABS: Microscopic, Urine URINE MICROSCOPIC (MICROSCOPIC)
[2024-11-25 02:57] LABS: Color,Urine YELLOW (Yellow); Glucose,Urine (UA) Negative (Negative); Ketones,Urine TRACE (Negative); Leukocyte Esterase,Urine TRACE (Negative); PH,Urine 6.0 (5.0-8.5); Protein,Urine 2+ (Negative); Specific Gravity, Urine 1.025 (1.005-1.030); Urobilinogen,Urine 0.2 EU/dl (0.2)
[2024-11-25 02:58] LABS: Alanine Aminotransferase 25 U/L (12-78); Albumin Level 4.2 g/dl (3.5-5.0); Albumin/Globulin Ratio 1.2 (1.1-1.8); Alkaline Phosphatase 99 U/L (38-126); Anion Gap 13.5 mEq/L (5-15); Aspartate Amino Transferase 29 U/L (14-36); Bilirubin,Total 0.4 mg/dl (0.2-1.3); Blood Urea Nitrogen 6 mg/dl (7-17); Calcium 9.2 mg/dl (8.4-10.2); Carbon Dioxide 21 mmol/L (22.0-30.0); Chloride 107 mmol/L (98-107); Creatinine Clearance Estimated 150 mL/min (50-200); Creatinine,Serum 0.80 mg/dl (0.52-1.04); Estimated Glomerular Filt Rate 81 ml/min (>60); GFR (African American) 98 ML/MIN (>60); Globulin 3.5 g/dL (1.3-3.2); Glucose 112 mg/dl (74-100); Lipase 51 U/L (23-300); Magnesium 1.9 mg/dl (1.6-2.3); Potassium 3.5 mmoL/L (3.5-5.1); Sodium 138 mmol/L (136-145); Total Protein,Serum 7.7 g/dl (6.3-8.2)
--- NOTE | 2024-11-25 02:59 | PC.NURSE ---
Pt to CT scan via wheelchair
[2024-11-25 03:01] LABS: Bilirubin,Urine 1+ (Negative)
[2024-11-25 03:09] LABS: Amorphous Sediment,Urine 1+ /lpf; Bacteria,Urine 2+ /lpf; Squamous Epithelial Cell,Urine 20-50 #/hpf (0-5)
[2024-11-25 03:21] LABS: HCG Qualitative, Serum Negative (Negative)
[2024-11-25] MEDS: SULFA/TRIMETHOPRIM 1 TABLET 1 EACH PO (04:04)
[2024-11-25 04:23] LABS: Hepatitis C Ab Qual. W/ RFX NEGATIVE (Negative)
--- NOTE | 2024-11-28 08:43 | PC.NURSE ---
Urine culture results reviewed by Dr. Echavarria. No new orders received.
== END 2024-11-25 04:32 | disposition home or self-care (01) ==
PROVIDERS: Emergency Provider Emergency Medicine; PCP Physician Assistant
DX: R10.30 Lower abdominal pain, unspecified (principal); N39.0 Urinary tract infection, site not specified; K52.9 Noninfective gastroenteritis and colitis, unspecified; F17.210 Nicotine dependence, cigarettes, uncomplicated
CPT/HCPCS: 74018; 80053; 81001; 83690; 83735; 84703; 85025; 86803; 87086; 87088; 87186; 87389; 93005; 96361; 96374; 96375; 99285; J0131; J1790; J7120